=== PATIENT | female | born 1950 | race Caucasian/White ===

== ENCOUNTER 2018-06-08 12:49 | Emergency (ER) | payer MEDICARE ==
--- NOTE | 2018-06-08 13:33 | ERPHSYRPT ---
- History of Present Illness Time Seen by Provider: 06/08/18 13:19 Source: patient Exam Limitations: no limitations Patient Subjective Stated Complaint: Pt states "I tripped over my little dogs blanket yesterday and fell. My right ribs and hip really hurt." Triage Nursing Assessment: Pt alert and oriented X 3, skin pwd. Pt ambulates with a limp, holding onto her right side. able to speak in clear full sentences. Physician History: The patient is a 67-year-old female complaining that she tripped over her dog's blanket yesterday evening, causing her to fall onto the linoleum floor. She now has right sided rib pain and right hip pain. It hurts to take a breath. She called in to her work and told him that she was hurting. She denies losing consciousness. Her past medical history is significant for gout. Occurred: yesterday Reason for Fall: tripped, fell from standing pos Injuries/Pain Location: chest (right ribs), lower extremity (right hip) Loss of Consciousness: no loss of consciousness Quality: aching, sharpness Severity of Pain-Max: moderate Severity of Pain-Current: moderate Modifying Factors: Improves With: movement Associated Symptoms (Fall): extremity injury, trouble walking Allergies/Adverse Reactions: codeine Allergy (Severe, Verified 03/28/16 14:24) Difficulty Breathing Penicillins Allergy (Severe, Verified 03/28/16 14:24) Difficulty Swallowing prednisone Adverse Reaction (Severe, Verified 03/28/16 14:24) Vomiting Hx Tetanus, Diphtheria Vaccination/Date Given: Yes Hx Influenza Vaccination/Date Given: Yes Hx Pneumococcal Vaccination/Date Given: No Immunizations Up to Date: Yes - Review of Systems Constitutional: No Fever, No Chills Eyes: No Symptoms Ears, Nose, & Throat: No Symptoms Respiratory: No Cough, No Dyspnea Cardiac: No Chest Pain, No Edema, No Syncope Abdominal/Gastrointestinal: No Abdominal Pain, No Nausea, No Vomiting, No Diarrhea Genitourinary Symptoms: No Dysuria Musculoskeletal: Fall, Injury Skin: No Rash Neurological: No Dizziness, No Focal Weakness, No Sensory Changes Psychological: No Symptoms Endocrine: No Symptoms Hematologic/Lymphatic: No Symptoms Immunological/Allergic: No Symptoms All Other Systems: Reviewed and Negative - Past Medical History Pertinent Past Medical History: Yes Neurological History: No Pertinent History ENT History: No Pertinent History Cardiac History: No Pertinent History Respiratory History: No Pertinent History Endocrine Medical History: No Pertinent History Musculoskeletal History: Other GI Medical History: No Pertinent History History: No Pertinent History Psycho-Social History: No Pertinent History Female Reproductive Disorders: No Pertinent History Other Medical History: 2nd digit left hand injury,gout - Past Surgical History Past Surgical History: Yes Neuro Surgical History: No Pertinent History Cardiac: No Pertinent History Respiratory: No Pertinent History Gastrointestinal: Appendectomy Genitourinary: No Pertinent History Musculoskeletal: No Pertinent History Female Surgical History: No Pertinent History Other Surgical History: TONSILS - Social History Smoking Status: Current every day smoker How long have you smoked: years Exposure to second hand smoke: Yes Drug Use: none Patient Lives Alone: Yes - Female History Hx Now: No - Nursing Vital Signs Nursing Vital Signs: Initial Vital Signs Temperature 98.6 F 06/08/18 12:58 Pulse Rate 94 H 06/08/18 12:58 Respiratory Rate 16 06/08/18 12:58 Blood Pressure 232/120 06/08/18 12:58 O2 Sat by Pulse Oximetry 97 06/08/18 12:58 Pain Scale Pain Intensity 0 - Chitina Coma Score Best Eye Response (Joann): (4) open spontaneously Best Verbal Response (Joann): (5) oriented Best Motor Response (Chitina): (6) obeys commands Joann Total: 15 - Physical Exam General Appearance: no apparent distress, alert Head Injury: no evidence of injury Eye Exam: PERRL/EOMI ENT Exam: airway nml Neck Exam: normal inspection, No tenderness Respiratory/Chest Exam: chest tenderness, rib tenderness (right lateral rib tenderness) Cardiovascular Exam: normal heart sounds, regular rate/rhythm Gastrointestinal Exam: soft, No tenderness, No distention, No guarding, No ecchymosis Rectal Exam: not done Back Exam: normal inspection, No vertebral tenderness Extremity Exam: weight bearing, tenderness (There is tenderness to palpation of the right hip. There is pain with motion of the right hip.) Neurologic Exam: alert, oriented x 3, cooperative, sensation nml, No motor deficits Skin Exam: normal color, warm, dry SpO2 Interpretation: normal SpO2: 97 Oxygen Delivery: Room Air - Radiology Exams Chest X-ray Interpretation: Reviewed by me, Teleradiologist Report (per Dr Fragoso), Other (old 5, 6 left rib fx) Pelvis X-ray Interpretation: Reviewed by me, Teleradiologist Report (per Dr Fragoso), Negative, No Fracture Right Ribs X-ray Interpretation: Reviewed by me, Teleradiologist Report (per Dr Fragoso), Non- displaced Fracture (8th rib) Right Hip X-ray Interpretation: Reviewed by me, Teleradiologist Report (per Dr Fragoso), Negative, No Fracture Ordered Tests: Active Orders 24 hr Category Date Time Status CHEST 2 VIEWS (PA AND LAT) Stat Exams 06/08/18 13:37 Completed HIP UNI (2V) INCL PEL IF DONE Stat Exams 06/08/18 13:37 Completed RIBS UNILATERAL Stat Exams 06/08/18 13:37 Completed - Progress Progress: unchanged Counseled pt/family regarding: diagnosis, need for follow-up, rad results - Departure Time of Disposition: 14:24 Departure Disposition: Home (fall) Clinical Impression: Fall, Right rib fracture Clinical Impression: (Ruled Out): Left rib fracture Condition: Stable Critical Care Time: No Referrals: SUDHA GOMEZ [Primary Care Provider] - Additional Instructions: You had a fall that ended up fracturing the eighth rib on your right side. You also have some right hip pain. Take [place] one tablet every 4-6 hours as needed. You have the next 3 days off. Follow-up with Dr. Gomez on Monday. Prescriptions: Hydrocodone/APAP 5/325 [[place] 5/325 mg] 1 each PO Q4-6HPRN PRN #12 tablet MDD 6 PRN Reason: Pain
--- NOTE | 2018-06-08 14:10 | XRAY ---
Indication: Right-sided chest pain following fall. Comparison: November 26, 2014. PA/lateral chest remains clear again with COPD and incidental bilateral nipple shadows. Heart and mediastinal structures within normal limits. Bony thorax intact again with old left 5/6 rib fractures. Impression: Stable nonacute chest with chronic features.
--- NOTE | 2018-06-08 14:14 | XRAY ---
Indication: Pain following fall. Comparison: None AP pelvis and 2 views of the right hip obtained. No bony, articular, or soft tissue abnormalities.
--- NOTE | 2018-06-08 14:14 | XRAY ---
Indication: Pain following fall. Comparison: September 07, 2011. 2 views of the right ribs demonstrates nondisplaced anterolateral acute 8 rib fracture. Elsewhere partially visualized old left 5/6 rib fractures and minimal degenerative spurring throughout the spine. No other bony, articular, or soft tissue abnormalities.
[2018-06-08 14:40] VITALS: BP 198/98; PULSE 80; O2SAT 98
== END 2018-06-08 14:59 | disposition home or self-care (01) ==
LOC: ED 12:49
DX: S22.31XA Fracture of one rib, right side, initial encounter for closed fracture (principal); M25.551 Pain in right hip; W18.09XA Striking against other object with subsequent fall, initial encounter; Y93.K9 Activity, other involving animal care; M10.9 Gout, unspecified; Z72.0 Tobacco use
CPT/HCPCS: 71046; 71100; 73502; 99283

== ENCOUNTER 2020-12-22 14:48 | Emergency (ER) | payer MEDICARE ==
[2020-12-22] MEDS ORDERED: BABY ASPIRIN 81 MG CHEW PO ONE (15:06)
--- NOTE | 2020-12-22 15:06 | ERPHSYRPT ---
- History of Present Illness Time Seen by Provider: 12/22/20 15:04 Source: patient Exam Limitations: no limitations Patient Subjective Stated Complaint: PT states "I have been having chest pain and shortness of breath for the past month and my left arm has been hurting." Triage Nursing Assessment: Pt presented alert and oriented X 3, skin pwd. PT ambulates with an upright steady gait, able to speak in clear full setences. pt able to speak in clear full sentences. Physician History: This is a hard of hearing 70-year-old then, female who is not on any medications and is switching her primary care doctor from Dr. Gomez to Dr. Blackmon and presents with at least a 1 month history of intermittent chest pain, shortness of breath and arm pain. Patient has a history of hypertension. Patient was providing some basic information to her new primary care physician on the phone which included her symptoms. They, at the office, told her to come to the emergency room for evaluation. The chest pain is described as intermittent, substernal and centrally located achiness with radiation of the achiness into her arms bilaterally. At times, the radiation of achiness in her arms start distally and then moved proximally. Timing/Duration: week(s) (Over 4 weeks) Activities at Onset: none Severity of Dyspnea-Max: mild Severity of Dyspnea-Current: mild Possible Cause: occasional episodes Associated Symptoms: intermittent, chest pain/discomfort, lightheadedness, No hemoptysis, No calf pain Allergies/Adverse Reactions: codeine Allergy (Severe, Verified 03/28/16 14:24) Difficulty Breathing Penicillins Allergy (Severe, Verified 03/28/16 14:24) Difficulty Swallowing prednisone Adverse Reaction (Severe, Verified 03/28/16 14:24) Vomiting Hx Tetanus, Diphtheria Vaccination/Date Given: Yes Hx Influenza Vaccination/Date Given: Yes Hx Pneumococcal Vaccination/Date Given: No Immunizations Up to Date: Yes Travel Risk - International Travel Have you traveled outside of the country in past 3 weeks: No - Coronavirus Screening Are you exhibiting any of the following symptoms?: No Close contact with a COVID-19 positive Pt in past 14-21 Days: No - Vaccine Status Have you recieved a Covid-19 vaccination: No - Review of Systems Constitutional: No Symptoms Eyes: No Symptoms Ears, Nose, & Throat: No Symptoms Respiratory: Dyspnea Cardiac: Chest Pain Abdominal/Gastrointestinal: No Symptoms Genitourinary Symptoms: No Symptoms Musculoskeletal: No Symptoms Skin: No Symptoms Neurological: No Symptoms Psychological: No Symptoms Endocrine: No Symptoms Hematologic/Lymphatic: No Symptoms Immunological/Allergic: No Symptoms All Other Systems: Reviewed and Negative - Past Medical History Pertinent Past Medical History: Yes Neurological History: No Pertinent History ENT History: No Pertinent History Cardiac History: No Pertinent History Respiratory History: No Pertinent History Endocrine Medical History: No Pertinent History Musculoskeletal History: Other GI Medical History: No Pertinent History History: No Pertinent History Psycho-Social History: No Pertinent History Female Reproductive Disorders: No Pertinent History Other Medical History: 2nd digit left hand injury,gout - Past Surgical History Past Surgical History: Yes Neuro Surgical History: No Pertinent History Cardiac: No Pertinent History Respiratory: No Pertinent History Gastrointestinal: Appendectomy Genitourinary: No Pertinent History Musculoskeletal: No Pertinent History Female Surgical History: No Pertinent History Other Surgical History: TONSILS - Social History Smoking Status: Current every day smoker How long have you smoked: years Exposure to second hand smoke: Yes Drug Use: none Patient Lives Alone: No - Female History Hx Now: No - Nursing Vital Signs Nursing Vital Signs: Initial Vital Signs Temperature 97.3 F 12/22/20 14:51 Pulse Rate 115 H 12/22/20 14:51 Respiratory Rate 22 12/22/20 14:51 Blood Pressure 228/120 12/22/20 14:51 O2 Sat by Pulse Oximetry 96 12/22/20 14:51 Pain Scale Pain Intensity 0 - Physical Exam General Appearance: no apparent distress, alert, anxiety, thin Eye Exam: PERRL/EOMI, eyes nml inspection Ears, Nose, Throat Exam: normal pharynx (Very poor dentition), hearing decreased (Chronic) Neck Exam: normal inspection, non-tender, supple, full range of motion Respiratory Exam: normal breath sounds, chest tenderness, lungs clear, airway intact, No respiratory distress Cardiovascular/Chest Exam: tachycardia Abdominal/Gastrointestinal Exam: soft, normal bowel sounds, No tenderness Rectal Exam: not done Extremity Exam: non-tender, normal range of motion, normal inspection, normal capillary refill, no calf tenderness, no pedal edema, pelvis stable Neurologic Exam: alert, oriented x 3, cooperative, air technician II-XII nml as tested, normal mood/affect, nml cerebellar function, nml station & gait, sensation nml Skin Exam: normal color, warm, dry Lymphatic Exam: No adenopathy SpO2 Interpretation: normal SpO2: 97 O2 Delivery: Room Air - Course Nursing assessment & vital signs reviewed: Yes EKG Interpreted by Me: RATE (100), Sinus Rhythm, NORMAL AXIS, prolonged QT interval, Non-specific ST Changes, Other (No acute ischemic changes. There is no comparison EKG available.) Ordered Tests: Active Orders 24 hr Category Date Time Status Ratings Analyst STAT Care 12/22/20 15:07 Active EKG-ER Only STAT Care 12/22/20 15:06 Active IV Insertion STAT Care 12/22/20 15:06 Active Pulse Oximetry (ED) STAT Care 12/22/20 15:06 Active CHEST 1 VIEW (PORTABLE) Stat Exams 12/22/20 15:07 Completed CBC W DIFF Stat Lab 12/22/20 15:10 Completed CMP Stat Lab 12/22/20 15:10 Completed D-DIMER QUANTITATIVE Stat Lab 12/22/20 15:10 Completed NT PRO BNP Stat Lab 12/22/20 15:10 Completed PROTIME WITH INR Stat Lab 12/22/20 15:10 Completed TROPONIN Q3H Lab 12/22/20 15:10 Completed TROPONIN Q3H Lab 12/22/20 18:15 Ordered TROPONIN Q3H Lab 12/22/20 21:15 Ordered TROPONIN Q3H Lab 12/23/20 00:15 Ordered TROPONIN Q3H Lab 12/23/20 03:15 Ordered Medication Summary Discontinued Medications Generic Name Dose Route Start Last Admin Trade Name Freq PRN Reason Stop Dose Admin Aspirin 324 mg 12/22/20 15:06 12/22/20 15:11 Baby Aspirin 81 Mg Chew PO 12/22/20 15:07 324 mg STAT ONE Administration Aspirin Confirm 12/22/20 15:11 Baby Aspirin 81 Mg Chew Administered 12/22/20 15:12 Dose 324 mg .ROUTE .STK-MED ONE Clonidine 0.1 mg 12/22/20 16:38 Catapres 0.1 Mg PO 12/22/20 16:39 STAT ONE Lab/Rad Data: Laboratory Result Diagrams 12/22/20 15:10 12/22/20 15:10 Laboratory Results 12/22/20 12/22/20 12/22/20 Range/Units 15:10 15:10 15:10 WBC (4.0-10.5) K/mm3 RBC (4.1-5.4) M/mm3 Hgb (12.0-16.0) gm/dl Hct (35-47) % MCV (78-100) fl MCH (26-32) pg MCHC (32-36) g/dl RDW (11.5-14.0) % Plt Count (150-450) K/mm3 MPV (7.5-11.0) fl Gran % (36.0-66.0) % Eos # (Auto) (0-0.5) Absolute Lymphs (auto) (1.0-4.6) Absolute Monos (auto) (0.0-1.3) Lymphocytes % (24.0-44.0) % Monocytes % (0.0-12.0) % Eosinophils % (0.00-5.0) % Basophils % (0.0-0.4) % Absolute Granulocytes (1.4-6.9) Basophils # (0-0.4) PT 10.8 (9.4-12.5) SECONDS INR 0.92 (0.8-3.0) D-Dimer 539 H* (215-500) ng/mL Sodium 139 (137-145) mmol/L Potassium 4.0 (3.5-5.1) mmol/L Chloride 99 (98-107) mmol/L Carbon Dioxide 28 (22-30) mmol/L Anion Gap 16.2 H (5-15) MEQ/L BUN 8 (7-17) mg/dL Creatinine 0.61 (0.52-1.04) mg/dL Estimated GFR > 60.0 ML/MIN Glucose 117 H (74-106) mg/dL Calcium 9.7 (8.4-10.2) mg/dL Total Bilirubin 0.40 (0.2-1.3) mg/dL AST 81 H (14-36) U/L ALT 24 (0-35) U/L Alkaline Phosphatase 95 (38-126) U/L Troponin I < 0.012 (0.000-0.034) ng/mL NT-Pro-B Natriuret Pep 177 (0-900) pg/mL Serum Total Protein 8.0 (6.3-8.2) g/dL Albumin 4.5 (3.5-5.0) g/dL 12/22/ Range/Units 15:10 WBC 9.5 (4.0-10.5) K/mm3 RBC 4.03 L (4.1-5.4) M/mm3 Hgb 14.6 (12.0-16.0) gm/dl Hct 43.1 (35-47) % MCV 106.9 H (78-100) fl MCH 36.2 H (26-32) pg MCHC 33.9 (32-36) g/dl RDW 14.1 H (11.5-14.0) % Plt Count 253 (150-450) K/mm3 MPV 9.6 (7.5-11.0) fl Gran % 64.2 (36.0-66.0) % Eos # (Auto) 0.11 (0-0.5) Absolute Lymphs (auto) 2.39 (1.0-4.6) Absolute Monos (auto) 0.84 (0.0-1.3) Lymphocytes % 25.3 (24.0-44.0) % Monocytes % 8.9 (0.0-12.0) % Eosinophils % 1.2 (0.00-5.0) % Basophils % 0.4 (0.0-0.4) % Absolute Granulocytes 6.07 (1.4-6.9) Basophils # 0.04 (0-0.4) PT (9.4-12.5) SECONDS INR (0.8-3.0) D-Dimer (215-500) ng/mL Sodium (137-145) mmol/L Potassium (3.5-5.1) mmol/L Chloride (98-107) mmol/L Carbon Dioxide (22-30) mmol/L Anion Gap (5-15) MEQ/L BUN (7-17) mg/dL Creatinine (0.52-1.04) mg/dL Estimated GFR ML/MIN Glucose (74-106) mg/dL Calcium (8.4-10.2) mg/dL Total Bilirubin (0.2-1.3) mg/dL AST (14-36) U/L ALT (0-35) U/L Alkaline Phosphatase (38-126) U/L Troponin I (0.000-0.034) ng/mL NT-Pro-B Natriuret Pep (0-900) pg/mL Serum Total Protein (6.3-8.2) g/dL Albumin (3.5-5.0) g/dL - Progress Progress: improved, re-examined Air Movement: good Progress Note: 12/22/20 15:51 Chest x-ray shows no acute cardiopulmonary process Blood Culture(s) Obtained: No Antibiotics given: No Counseled pt/family regarding: lab results, diagnosis, need for follow-up, rad results - Departure Departure Disposition: Home Clinical Impression: Hypertension, Chest pain Condition: Stable Critical Care Time: No Referrals: SUDHA GOMEZ [ACTIVE STAFF] - Additional Instructions: Stop smoking. Take your medication as prescribed. Follow-up with your primary care physician for further management of your high blood pressure issues. Prescriptions: Hydrochlorothiazide 25 mg [hydroDIURIL 25 MG] 25 mg PO DAILY #10 tablet
[2020-12-22] MEDS ORDERED: BABY ASPIRIN 81 MG CHEW ONE (15:11)
[2020-12-22 15:21] LABS: Absolute Neutrophil Ct (ANC) 6.07 (1.4-6.9); BASOPHIL % 0.4 % (0.0-0.4); Basophil (Absolute #) 0.04 (0-0.4); Eosinophil % 1.2 % (0.00-5.0); Eosinophil (Absolute #) 0.11 (0-0.5); Hematocrit 43.1 % (35-47); Hemoglobin 14.6 gm/dl (12.0-16.0); Lymphocyte (Absolute #) 2.39 (1.0-4.6); Lymphocytes % 25.3 % (24.0-44.0); Mean Cell Volume 106.9 fl (78-100); Mean Corpuscular Hemoglobin 36.2 pg (26-32); Mean Corpuscular Hgb Concent. 33.9 g/dl (32-36); Mean Platelet Volume 9.6 fl (7.5-11.0); Monocyte (Absolute #) 0.84 (0.0-1.3); Monocytes % 8.9 % (0.0-12.0); Neutrophil % 64.2 % (36.0-66.0); Platelet Count 253 K/mm3 (150-450); Red Blood Count 4.03 M/mm3 (4.1-5.4); Red Cell Distribution Width 14.1 % (11.5-14.0); White Blood Count 9.5 K/mm3 (4.0-10.5)
--- NOTE | 2020-12-22 15:30 | XRAY ---
Indication: Chest pain and short of breath. Comparison: June 08, 2018. Portable chest remains clear again with COPD, bilateral nipple shadows, and left midlung fibrosis/scarring. Heart not enlarged. Bony thorax intact again with mild osteopenia, minimal scoliosis, old left 5/6 rib fractures, and old right 10 rib fracture. Impression: Continued nonacute chest with chronic features.
[2020-12-22 15:49] LABS: ALBUMIN 4.5 g/dL (3.5-5.0); ALKALINE PHOSPHATASE 95 U/L (38-126); ANION GAP 16.2 MEQ/L (5-15); BLOOD UREA NITROGEN 8 mg/dL (7-17); CHLORIDE 99 mmol/L (98-107); Calcium 9.7 mg/dL (8.4-10.2); Carbon Dioxide 28 mmol/L (22-30); Creatinine 1 0.61 mg/dL (0.52-1.04); EST GLOMERULAR FILTRATION RATE > 60.0 ML/MIN; Glucose 117 mg/dL (74-106); NT PRO BNP 177 pg/mL (0-900); SGOT/AST 81 U/L (14-36); SGPT/ALT 24 U/L (0-35); SODIUM 139 mmol/L (137-145)
[2020-12-22 16:17] LABS: INR 0.92 (0.8-3.0); PROTIME 10.8 SECONDS (9.4-12.5)
[2020-12-22] MEDS ORDERED: Catapres 0.1 MG PO ONE (16:38)
[2020-12-22] MEDS ORDERED: Catapres 0.1 MG ONE (16:42)
[2020-12-22 17:25] VITALS: BP 150/76; PULSE 65; O2SAT 98
== END 2020-12-22 17:25 | disposition home or self-care (01) ==
LOC: ED 14:48
DX: I10 Essential (primary) hypertension (principal); R07.9 Chest pain, unspecified; R06.02 Shortness of breath; Z72.0 Tobacco use
CPT/HCPCS: 36000; 36415; 71045; 80053; 83880; 84484; 85025; 85379; 85610; 93005; 93041; 94760; 99284; A9270-GY

== ENCOUNTER 2021-06-26 17:34 | Inpatient (IN) | payer MEDICARE ==
[2021-06-26] MEDS ORDERED: Sodium Chloride 0.9% 1000 ML 1,000 ML IV STA (17:45)
--- NOTE | 2021-06-26 18:21 | ERPHSYRPT ---
- History of Present Illness Time Seen by Provider: 06/26/21 18:18 Source: patient, EMS Exam Limitations: no limitations Patient Subjective Stated Complaint: Pt states "I have a horrible cough and it will not go away." Triage Nursing Assessment: Pt presented alert and oriented X 3, skin wpd Pt ambulates with an upright steady gait, able to speak in clear full sentences pt slightly tachypneic, extremely hard of hearing, pt Spo2 in the upper 80s on room air and improves with 2 lpm o2, intermittant productive cough-yellow green sputum Physician History: Patient is 70-year-old female with significant past medical history of COPD started having cough approximately 2 weeks ago which will not go away. Patient is complaining of shortness of breath cough generalized body ache. Patient has no exposure to COVID recently but has not been vaccinated. Timing/Duration: day(s) (7-10 days) Severity of Dyspnea-Max: moderate Severity of Dyspnea-Current: moderate Possible Cause: frequent episodes Associated Symptoms: cough, wheezing Allergies/Adverse Reactions: codeine Allergy (Severe, Verified 03/28/16 14:24) Difficulty Breathing Penicillins Allergy (Severe, Verified 03/28/16 14:24) Difficulty Swallowing prednisone Adverse Reaction (Severe, Verified 03/28/16 14:24) Vomiting Hx Tetanus, Diphtheria Vaccination/Date Given: Yes Hx Influenza Vaccination/Date Given: Yes Hx Pneumococcal Vaccination/Date Given: No Immunizations Up to Date: Yes Travel Risk - International Travel Have you traveled outside of the country in past 3 weeks: No - Coronavirus Screening Are you exhibiting any of the following symptoms?: Yes Symptoms: Cough: New Onset, Shortness of Breath Close contact with a COVID-19 positive Pt in past 14-21 Days: No - Vaccine Status Have you recieved a Covid-19 vaccination: No - Review of Systems Constitutional: No Fever, No Chills Eyes: No Symptoms Ears, Nose, & Throat: No Symptoms Respiratory: Cough, Dyspnea, Dyspnea on Exertion (VEGAS), Wheezing Cardiac: No Chest Pain, No Edema, No Syncope Abdominal/Gastrointestinal: No Abdominal Pain, No Nausea, No Vomiting, No Diarrhea Genitourinary Symptoms: No Dysuria Musculoskeletal: No Back Pain, No Neck Pain Skin: No Rash Neurological: No Dizziness, No Focal Weakness, No Sensory Changes Psychological: No Symptoms Endocrine: No Symptoms All Other Systems: Reviewed and Negative - Past Medical History Pertinent Past Medical History: Yes Neurological History: No Pertinent History ENT History: No Pertinent History Cardiac History: No Pertinent History Respiratory History: COPD, Emphysema Endocrine Medical History: No Pertinent History Musculoskeletal History: Other GI Medical History: No Pertinent History History: No Pertinent History Psycho-Social History: No Pertinent History Female Reproductive Disorders: No Pertinent History Other Medical History: 2nd digit left hand injury,gout - Past Surgical History Past Surgical History: Yes Neuro Surgical History: No Pertinent History Cardiac: No Pertinent History Respiratory: No Pertinent History Gastrointestinal: Appendectomy Genitourinary: No Pertinent History Musculoskeletal: No Pertinent History Female Surgical History: No Pertinent History Other Surgical History: TONSILS - Social History Smoking Status: Current every day smoker How long have you smoked: years Exposure to second hand smoke: Yes Drug Use: none Patient Lives Alone: No - Female History Hx Now: No - Nursing Vital Signs Nursing Vital Signs: Initial Vital Signs Temperature 99.8 F 06/26/21 17:35 Pulse Rate 90 06/26/21 17:35 Respiratory Rate 24 06/26/21 17:35 Blood Pressure 122/91 06/26/21 17:35 O2 Sat by Pulse Oximetry 86 L 06/26/21 17:35 Pain Scale Pain Intensity 0 - Physical Exam General Appearance: no apparent distress, alert Eye Exam: PERRL/EOMI Neck Exam: normal inspection, supple Respiratory Exam: diminished breath sounds, crackles/rales, rhonchi, wheezing Cardiovascular/Chest Exam: normal heart sounds, regular rate/rhythm Abdominal/Gastrointestinal Exam: soft, No tenderness, No distention, No mass Extremity Exam: non-tender, normal range of motion, normal inspection, no calf tenderness, no pedal edema Neurologic Exam: alert, oriented x 3, cooperative, 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 tested, sensation nml, No motor deficits Skin Exam: normal color, warm, No dry SpO2 Interpretation: borderline oxygenation SpO2: 86 O2 Delivery: Room Air - Course Nursing assessment & vital signs reviewed: Yes EKG Interpreted by Me: Sinus Rhythm - Radiology Exams Chest X-ray Interpretation: Reviewed by me (intertitial infiltarte consistanrt with COVID pneumoniaCOPD changes) Ordered Tests: Active Orders 24 hr Category Date Time Status On Car Supervisor STAT Care 06/26/21 17:47 Active Oxygen-ED Only Nasal Cannula 3 lpm Care 06/26/21 17:45 Active CHEST 2 VIEWS (PA AND LAT) Stat Exams 06/26/21 17:47 Completed BLOOD CULTURE Stat Lab 06/26/21 18:27 Ordered CBC W DIFF Stat Lab 06/26/21 17:45 Completed CMP Stat Lab 06/26/21 18:27 Completed COVID AG-BINAX NOW RAPID TEST Stat Lab 06/26/21 18:29 Completed D-DIMER QUANTITATIVE Stat Lab 06/26/21 18:27 Completed NT PRO BNP Stat Lab 06/26/21 18:27 Completed TROPONIN Q3H Lab 06/26/21 18:27 Received TROPONIN Q3H Lab 06/26/21 21:00 Ordered TROPONIN Q3H Lab 06/27/21 00:00 Ordered TROPONIN Q3H Lab 06/27/21 03:00 Ordered TROPONIN Q3H Lab 06/27/21 06:00 Ordered UA W/RFX UR CULTURE Stat Lab 06/26/21 17:46 Ordered Medication Summary Discontinued Medications Generic Name Dose Route Start Last Admin Trade Name Freq PRN Reason Stop Dose Admin Sodium Chloride 1,000 mls @ 999 mls/hr 06/26/21 17:45 06/26/21 18:30 Sodium Chloride 0.9% 1000 Ml IV 06/26/21 18:45 999 mls/hr .Q1H1M STA Administration Sodium Chloride Confirm 06/26/21 18:26 Sodium Chloride 0.9% 1000 Ml Administered 06/26/21 18:27 Dose 1,000 mls @ ud .ROUTE .STK-MED ONE Lab/Rad Data: Laboratory Result Diagrams 06/26/21 17:45 06/26/21 18:27 Laboratory Results 06/26/21 06/26/21 06/26/21 Range/Units 18:29 18:27 18:27 WBC (4.0-10.5) K/mm3 RBC (4.1-5.4) M/mm3 Hgb (12.0-16.0) gm/dl Hct (35-47) % MCV (78-100) fl MCH (26-32) pg MCHC (32-36) g/dl RDW (11.5-14.0) % Plt Count (150-450) K/mm3 MPV (7.5-11.0) fl Gran % (36.0-66.0) % Eos # (Auto) (0-0.5) Absolute Lymphs (auto) (1.0-4.6) Absolute Monos (auto) (0.0-1.3) Lymphocytes % (24.0-44.0) % Monocytes % (0.0-12.0) % Eosinophils % (0.00-5.0) % Basophils % (0.0-0.4) % Absolute Granulocytes (1.4-6.9) Basophils # (0-0.4) D-Dimer 559 H* (215-500) ng/mL Sodium 136 L (137-145) mmol/L Potassium 3.6 (3.5-5.1) mmol/L Chloride 102 (98-107) mmol/L Carbon Dioxide 25 (22-30) mmol/L Anion Gap 12.0 (5-15) MEQ/L BUN 9 (7-17) mg/dL Creatinine 0.52 (0.52-1.04) mg/dL Estimated GFR > 60.0 ML/MIN Glucose 162 H (74-106) mg/dL Calcium 8.5 (8.4-10.2) mg/dL Total Bilirubin 0.60 (0.2-1.3) mg/dL AST 45 H (14-36) U/L ALT 24 (0-35) U/L Alkaline Phosphatase 103 (38-126) U/L NT-Pro-B Natriuret Pep 701 (0-900) pg/mL Serum Total Protein 6.8 (6.3-8.2) g/dL Albumin 3.4 L (3.5-5.0) g/dL SARS-CoV-2 Ag (Rapid) POSITIVE A* (NEGATIVE) 06/26/21 Range/Units 17:45 WBC 8.1 (4.0-10.5) K/mm3 RBC 4.05 L (4.1-5.4) M/mm3 Hgb 14.4 (12.0-16.0) gm/dl Hct 42.1 (35-47) % MCV 104.0 H (78-100) fl MCH 35.6 H (26-32) pg MCHC 34.2 (32-36) g/dl RDW 15.2 H (11.5-14.0) % Plt Count 235 (150-450) K/mm3 MPV 9.8 (7.5-11.0) fl Gran % 82.8 H (36.0-66.0) % Eos # (Auto) 0 (0-0.5) Absolute Lymphs (auto) 0.43 L (1.0-4.6) Absolute Monos (auto) 0.96 (0.0-1.3) Lymphocytes % 5.3 L (24.0-44.0) % Monocytes % 11.9 (0.0-12.0) % Eosinophils % 0.0 (0.00-5.0) % Basophils % 0.0 (0.0-0.4) % Absolute Granulocytes 6.70 (1.4-6.9) Basophils # 0 (0-0.4) D-Dimer (215-500) ng/mL Sodium (137-145) mmol/L Potassium (3.5-5.1) mmol/L Chloride (98-107) mmol/L Carbon Dioxide (22-30) mmol/L Anion Gap (5-15) MEQ/L BUN (7-17) mg/dL Creatinine (0.52-1.04) mg/dL Estimated GFR ML/MIN Glucose (74-106) mg/dL Calcium (8.4-10.2) mg/dL Total Bilirubin (0.2-1.3) mg/dL AST (14-36) U/L ALT (0-35) U/L Alkaline Phosphatase (38-126) U/L NT-Pro-B Natriuret Pep (0-900) pg/mL Serum Total Protein (6.3-8.2) g/dL Albumin (3.5-5.0) g/dL SARS-CoV-2 Ag (Rapid) (NEGATIVE) - Progress Progress: improved Air Movement: fair Blood Culture(s) Obtained: No Antibiotics given: No Discussed with : Other (Dr Renaldo Garnica) Will see patient in: hospital (full admit) Counseled pt/family regarding: lab results, diagnosis, need for follow-up, rad results, smoking cessation - Departure Departure Disposition: In-patient Admission Clinical Impression: Pneumonia due to COVID-19 virus Condition: Stable Critical Care Time: Yes Critical Care Time(excluding separately billable procedures): Critical 30-74 mins Referrals: BELLE ELENA DO [Primary Care Provider] - Follow up/PCP as directed
[2021-06-26] MEDS ORDERED: Sodium Chloride 0.9% 1000 ML 1,000 ML ONE (18:26)
[2021-06-26 18:36] LABS: Basophil (Absolute #) 0 (0-0.4); Eosinophil (Absolute #) 0 (0-0.5); Hematocrit 42.1 % (35-47); Hemoglobin 14.4 gm/dl (12.0-16.0); Lymphocyte (Absolute #) 0.43 (1.0-4.6); Lymphocytes % 5.3 % (24.0-44.0); Mean Corpuscular Hemoglobin 35.6 pg (26-32); Mean Corpuscular Hgb Concent. 34.2 g/dl (32-36); Mean Platelet Volume 9.8 fl (7.5-11.0); Monocyte (Absolute #) 0.96 (0.0-1.3); Monocytes % 11.9 % (0.0-12.0); Neutrophil % 82.8 % (36.0-66.0); Platelet Count 235 K/mm3 (150-450); Red Blood Count 4.05 M/mm3 (4.1-5.4); Red Cell Distribution Width 15.2 % (11.5-14.0); White Blood Count 8.1 K/mm3 (4.0-10.5)
--- NOTE | 2021-06-26 18:45 | XRAY ---
Indication: Fever, cough, short of breath, and weakness. Comparison: December 22, 2020. PA/lateral chest again demonstrates COPD, tiny left midlung calcified granuloma, and incidental bilateral nipple shadows. No focal infiltrate, consolidation, or large effusion. Heart and mediastinal structures within normal limits. Bony thorax intact again with osteopenia, minimal dextroscoliosis, old left 5/6 rib fractures, and old right 10 rib fracture. Impression: Continued nonacute chest with chronic features.
[2021-06-26 18:49] LABS: ALBUMIN 3.4 g/dL (3.5-5.0); ALKALINE PHOSPHATASE 103 U/L (38-126); BLOOD UREA NITROGEN 9 mg/dL (7-17); CHLORIDE 102 mmol/L (98-107); Calcium 8.5 mg/dL (8.4-10.2); Carbon Dioxide 25 mmol/L (22-30); Creatinine 1 0.52 mg/dL (0.52-1.04); EST GLOMERULAR FILTRATION RATE > 60.0 ML/MIN; Glucose 162 mg/dL (74-106); NT PRO BNP 701 pg/mL (0-900); Potassium 3.6 mmol/L (3.5-5.1); SGOT/AST 45 U/L (14-36); SGPT/ALT 24 U/L (0-35); SODIUM 136 mmol/L (137-145); Total Protein 6.8 g/dL (6.3-8.2)
[2021-06-26 18:53] LABS: COVID AG -BINAX NOW RAPID TEST POSITIVE (NEGATIVE)
[2021-06-26] MEDS ORDERED: VENTOLIN COMMON CANISTER IH PRN (19:04)
[2021-06-26] MEDS ORDERED: Lactated Ringers 1,000 ML IV SCH (19:30)
[2021-06-26] MEDS: Tessalon Perles 100 MG PO PRN (19:52)
[2021-06-26] MEDS ORDERED: REMDESIVIR 200 MG in Sodium Chloride 0.9% 250 ML 250 ML IV ONE (20:16)
[2021-06-26] MEDS ORDERED: REMDESIVIR IV ONE (20:17)
[2021-06-26] MEDS ORDERED: Sodium Chloride 0.9% 250 ML 250 ML IV ONE (20:17)
[2021-06-26] MEDS ORDERED: TYLENOL EXTRA STRENGTH 500 MG PO PRN (21:13)
[2021-06-26] MEDS ORDERED: Sodium Chloride 0.9% 1000 ML 1,000 ML IV SCH (21:15)
[2021-06-26] MEDS: NORCO 5/325 MG PO PRN (21:25)
[2021-06-27] MEDS: HYDROCODONE-CHLORPHEN ER SUSP PO PRN ×2 (00:45→19:16)
[2021-06-27] MEDS: NORCO 5/325 MG PO PRN ×5 (04:10→21:33)
[2021-06-27 06:31] LABS: Hematocrit 37.6 % (35-47); Hemoglobin 12.8 gm/dl (12.0-16.0); Mean Cell Volume 104.4 fl (78-100); Mean Corpuscular Hemoglobin 35.6 pg (26-32); Mean Platelet Volume 9.9 fl (7.5-11.0); Platelet Count 215 K/mm3 (150-450); Red Cell Distribution Width 15.4 % (11.5-14.0); White Blood Count 7.9 K/mm3 (4.0-10.5)
[2021-06-27 06:57] LABS: ALBUMIN 2.4 g/dL (3.5-5.0); ALKALINE PHOSPHATASE 73 U/L (38-126); ANION GAP 9.7 MEQ/L (5-15); BLOOD UREA NITROGEN 7 mg/dL (7-17); CHLORIDE 107 mmol/L (98-107); Calcium 7.4 mg/dL (8.4-10.2); Carbon Dioxide 23 mmol/L (22-30); Creatinine 1 0.49 mg/dL (0.52-1.04); EST GLOMERULAR FILTRATION RATE > 60.0 ML/MIN; Glucose 91 mg/dL (74-106); Potassium 3.5 mmol/L (3.5-5.1); SGOT/AST 30 U/L (14-36); SGPT/ALT 16 U/L (0-35); SODIUM 135 mmol/L (137-145); Total Protein 5.1 g/dL (6.3-8.2)
[2021-06-27] MEDS: VENTOLIN COMMON CANISTER IH SCH ×4 (08:05→20:00)
[2021-06-27] MEDS: Tessalon Perles 100 MG PO PRN ×2 (08:27→23:49)
[2021-06-27] MEDS: ENOXAPARIN SODIUM SQ SCH (10:02)
[2021-06-27] MEDS: OLUMIANT PO SCH (10:02)
[2021-06-27] MEDS: DECADRON 10MG INJ. IV SCH (10:02)
[2021-06-27] MEDS: ZYLOPRIM 100 MG PO SCH (10:03)
[2021-06-27] MEDS: hydroDIURIL 25 MG PO SCH (12:04)
[2021-06-27] MEDS: NORVASC 5 MG PO SCH (12:04)
[2021-06-27] MEDS: REMDESIVIR 100 MG in Sodium Chloride 0.9% 100 ML BAG 100 ML IV SCH (18:10)
[2021-06-28] MEDS: NORCO 5/325 MG PO PRN ×5 (01:35→22:09)
[2021-06-28] MEDS: Tessalon Perles 100 MG PO PRN (05:37)
[2021-06-28 06:01] LABS: Hematocrit 37.8 % (35-47); Mean Corpuscular Hemoglobin 35.4 pg (26-32); Mean Corpuscular Hgb Concent. 34.4 g/dl (32-36); Platelet Count 251 K/mm3 (150-450); Red Blood Count 3.67 M/mm3 (4.1-5.4); White Blood Count 7.4 K/mm3 (4.0-10.5)
[2021-06-28 06:10] LABS: ALBUMIN 2.6 g/dL (3.5-5.0); ALKALINE PHOSPHATASE 93 U/L (38-126); ANION GAP 11.1 MEQ/L (5-15); BLOOD UREA NITROGEN 14 mg/dL (7-17); CHLORIDE 104 mmol/L (98-107); Calcium 7.9 mg/dL (8.4-10.2); Carbon Dioxide 24 mmol/L (22-30); Creatinine 1 0.41 mg/dL (0.52-1.04); EST GLOMERULAR FILTRATION RATE > 60.0 ML/MIN; Glucose 179 mg/dL (74-106); Potassium 3.6 mmol/L (3.5-5.1); SGOT/AST 30 U/L (14-36); SGPT/ALT 19 U/L (0-35); SODIUM 135 mmol/L (137-145); Total Protein 5.5 g/dL (6.3-8.2)
[2021-06-28] MEDS: VENTOLIN COMMON CANISTER IH SCH ×4 (07:41→19:15)
[2021-06-28] MEDS: DECADRON 10MG INJ. IV SCH (08:51)
[2021-06-28] MEDS: OLUMIANT PO SCH (08:53)
[2021-06-28] MEDS: NORVASC 5 MG PO SCH (08:54)
[2021-06-28] MEDS: hydroDIURIL 25 MG PO SCH (08:54)
[2021-06-28] MEDS: ZYLOPRIM 100 MG PO SCH (08:55)
[2021-06-28] MEDS: ENOXAPARIN SODIUM SQ SCH (08:56)
[2021-06-28] MEDS: REMDESIVIR 100 MG in Sodium Chloride 0.9% 100 ML BAG 100 ML IV SCH (20:04)
[2021-06-29 05:31] LABS: Hematocrit 39.4 % (35-47); Hemoglobin 13.2 gm/dl (12.0-16.0); Mean Cell Volume 103.1 fl (78-100); Mean Corpuscular Hemoglobin 34.6 pg (26-32); Mean Corpuscular Hgb Concent. 33.5 g/dl (32-36); Mean Platelet Volume 10.3 fl (7.5-11.0); Platelet Count 304 K/mm3 (150-450); Red Blood Count 3.82 M/mm3 (4.1-5.4); White Blood Count 8.6 K/mm3 (4.0-10.5)
[2021-06-29 06:00] LABS: ALKALINE PHOSPHATASE 84 U/L (38-126); BLOOD UREA NITROGEN 12 mg/dL (7-17); CHLORIDE 98 mmol/L (98-107); Calcium 8.2 mg/dL (8.4-10.2); Carbon Dioxide 26 mmol/L (22-30); Creatinine 1 0.42 mg/dL (0.52-1.04); EST GLOMERULAR FILTRATION RATE > 60.0 ML/MIN; Glucose 165 mg/dL (74-106); Potassium 3.3 mmol/L (3.5-5.1); SGOT/AST 31 U/L (14-36); SGPT/ALT 19 U/L (0-35); SODIUM 132 mmol/L (137-145); Total Protein 6.2 g/dL (6.3-8.2)
[2021-06-29] MEDS: VENTOLIN COMMON CANISTER IH SCH ×4 (07:15→19:10)
[2021-06-29] MEDS: DECADRON 10MG INJ. IV SCH (07:42)
[2021-06-29] MEDS: OLUMIANT PO SCH (07:43)
[2021-06-29] MEDS: hydroDIURIL 25 MG PO SCH (07:43)
[2021-06-29] MEDS: NORVASC 5 MG PO SCH (07:44)
[2021-06-29] MEDS: ZYLOPRIM 100 MG PO SCH (07:44)
[2021-06-29] MEDS: HYDROCODONE-CHLORPHEN ER SUSP PO PRN ×2 (07:45→21:52)
[2021-06-29] MEDS: ENOXAPARIN SODIUM SQ SCH (07:45)
[2021-06-29] MEDS: NORCO 5/325 MG PO PRN ×4 (08:54→21:52)
[2021-06-29] MEDS: Klor Con 10 MEQ PO SCH ×2 (12:35→21:52)
[2021-06-29] MEDS: REMDESIVIR 100 MG in Sodium Chloride 0.9% 100 ML BAG 100 ML IV SCH (19:21)
[2021-06-30] MEDS: Tessalon Perles 100 MG PO PRN ×2 (00:34→09:18)
[2021-06-30] MEDS: NORCO 5/325 MG PO PRN ×2 (02:21→07:42)
[2021-06-30 05:47] LABS: Hematocrit 38.7 % (35-47); Hemoglobin 12.9 gm/dl (12.0-16.0); Mean Cell Volume 102.4 fl (78-100); Mean Corpuscular Hemoglobin 34.1 pg (26-32); Mean Corpuscular Hgb Concent. 33.3 g/dl (32-36); Platelet Count 347 K/mm3 (150-450); Red Blood Count 3.78 M/mm3 (4.1-5.4); Red Cell Distribution Width 15.3 % (11.5-14.0); White Blood Count 7.5 K/mm3 (4.0-10.5)
[2021-06-30 06:17] LABS: ALBUMIN 2.9 g/dL (3.5-5.0); ALKALINE PHOSPHATASE 93 U/L (38-126); ANION GAP 9.8 MEQ/L (5-15); BLOOD UREA NITROGEN 13 mg/dL (7-17); CHLORIDE 97 mmol/L (98-107); Calcium 8.4 mg/dL (8.4-10.2); Carbon Dioxide 28 mmol/L (22-30); Creatinine 1 0.43 mg/dL (0.52-1.04); EST GLOMERULAR FILTRATION RATE > 60.0 ML/MIN; Glucose 159 mg/dL (74-106); Potassium 3.5 mmol/L (3.5-5.1); SGOT/AST 54 U/L (14-36); SGPT/ALT 28 U/L (0-35); SODIUM 131 mmol/L (137-145); Total Protein 6.1 g/dL (6.3-8.2)
[2021-06-30 07:26] VITALS: BP 128/64
[2021-06-30] MEDS: VENTOLIN COMMON CANISTER IH SCH (07:44)
[2021-06-30 07:48] VITALS: PULSE 72; O2SAT 91
[2021-06-30] MEDS: OLUMIANT PO SCH (09:17)
[2021-06-30] MEDS: NORVASC 5 MG PO SCH (09:17)
[2021-06-30] MEDS: Klor Con 10 MEQ PO SCH (09:17)
[2021-06-30] MEDS: hydroDIURIL 25 MG PO SCH (09:18)
[2021-06-30] MEDS: ZYLOPRIM 100 MG PO SCH (09:19)
[2021-06-30] MEDS: ENOXAPARIN SODIUM SQ SCH (09:22)
[2021-06-30] MEDS: DECADRON 10MG INJ. IV SCH (09:22)
--- NOTE | 2021-06-30 11:26 | DS ---
ADMISSION DIAGNOSIS: COVID pneumonia. DISCHARGE DIAGNOSES: 1) COVID PNEUMONIA. 2) CHRONIC OBSTRUCTIVE PULMONARY DISEASE. 3) MACROCYTIC ANEMIA. 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 She is a heavy smoker. She is very frail looking. She started coughing and became very weak. She came into the emergency room and was admitted after she was found to be slightly hypoxic. Chest x-ray showed lots of emphysema. Her D-dimer was only 559. Her white count was 8.1. Her MCV was 104. B12 and folate levels were normal. I wonder if this might be due to alcohol as I know some of her friends who drank a fair amount in the past. She said it was not. She is very hard of hearing but she continued to improve on a daily basis. On the day of discharge, she was eating well. She had required no oxygen for 48 hours. She was able to walk to and from the bathroom without help. She did not leave. However, she does not meet criteria. I think she will do just fine. She had received the usual COVID medications and also required some potassium due to probably being on hydrochlorothiazide and she was discharged with some potassium 10 mEq q.d. Follow up with her physician. PROGNOSIS: Good.
== END 2021-06-30 12:30 | disposition home health service (06) | DRG 177 ==
LOC: ED 17:34 → MED SURG 19:56
PROVIDERS: ADMIT Family Medicine; ATTEND Family Medicine
DX: U07.1 COVID-19 (principal); J12.82 Pneumonia due to coronavirus disease 2019; J44.9 Chronic obstructive pulmonary disease, unspecified; D53.9 Nutritional anemia, unspecified; R09.02 Hypoxemia; Z72.0 Tobacco use; Z79.899 Other long term (current) drug therapy
CPT/HCPCS: 36000; 36415; 71046; 80053; 82746; 83880; 84484; 85025; 85027; 85379; 87040; 93041; 94640; 94762; 96374; 99000; 99284; 99291; U0003; J0248; J1100; J1650; A9270-GY

== ENCOUNTER 2021-07-01 14:55 | Emergency (ER) | payer MEDICARE ==
[2021-07-01] MEDS ORDERED: DUONEB 0.5-3 MG/3 ml Neb IH ONE (15:40)
--- NOTE | 2021-07-01 16:15 | XRAY ---
Indication: Cough. Short of breath. Comparison: June 26, 2021. Portable chest remains clear again demonstrating COPD and incidental left midlung calcified granuloma. Heart not enlarged. No new/acute cardiopulmonary abnormalities.
[2021-07-01] MEDS ORDERED: VENTOLIN COMMON CANISTER IH ONE (16:36)
[2021-07-01 16:38] LABS: Hemoglobin 15.3 gm/dl (12.0-16.0); Mean Cell Volume 103.4 fl (78-100); Mean Corpuscular Hemoglobin 34.4 pg (26-32); Mean Corpuscular Hgb Concent. 33.3 g/dl (32-36); Mean Platelet Volume 9.6 fl (7.5-11.0); Platelet Count 414 K/mm3 (150-450); Red Blood Count 4.45 M/mm3 (4.1-5.4); Red Cell Distribution Width 15.8 % (11.5-14.0); White Blood Count 14.2 K/mm3 (4.0-10.5)
[2021-07-01 16:39] VITALS: PULSE 86
[2021-07-01 16:44] VITALS: BP 90/57; O2SAT 93
[2021-07-01 17:05] LABS: ALBUMIN 3.2 g/dL (3.5-5.0); ALKALINE PHOSPHATASE 99 U/L (38-126); ANION GAP 12.2 MEQ/L (5-15); BLOOD UREA NITROGEN 17 mg/dL (7-17); CHLORIDE 98 mmol/L (98-107); Calcium 8.4 mg/dL (8.4-10.2); Carbon Dioxide 28 mmol/L (22-30); Creatinine 1 0.66 mg/dL (0.52-1.04); EST GLOMERULAR FILTRATION RATE > 60.0 ML/MIN; Glucose 88 mg/dL (74-106); MAGNESIUM 2.2 mg/dL (1.6-2.3); NT PRO BNP 428 pg/mL (0-900); Potassium 3.6 mmol/L (3.5-5.1); SGOT/AST 49 U/L (14-36); SGPT/ALT 38 U/L (0-35); SODIUM 135 mmol/L (137-145); Total Protein 6.5 g/dL (6.3-8.2)
[2021-07-01 17:49] LABS: ATYPICAL LYMPHS 1 %; Lymphocytes 13 % (24-44); Monocyte 4 % (0.0-12.0); Neutrophils 82 % (36.0-66.0); Platelet Estimate NORMAL (NORMAL); Total Cells Counted 100
--- NOTE | 2021-07-01 17:55 | ERPHSYRPT ---
- History of Present Illness Time Seen by Provider: 07/01/21 15:00 Source: patient, EMS Exam Limitations: no limitations Patient Subjective Stated Complaint: Pt had been hospitilized for the past 5-6 days at [facility] and was discharged yesterday with COVID and returned today due to SOB, when medics arrived she was at 85% and they gave her a couple of treatments and she is now at 92% Triage Nursing Assessment: Pt brought by EMS to the ER, tachypnic, rates overall pain as 9/10, productive cough, was not sent home on oxygen due to not being on oxygen while at the hospital, pulses normal, weak, reports broken ribs on the left from coughing, heart rate irregular Physician History: 70 years old female who was recently admitted for COVID-19 at [facility], was discharged yesterday presented back in the ER with increasing shortness of breath. Patient reports she is using inhaler and it does not seem helping. On EMS arrival her oxygen saturation was 85% on room air, was given breathing treatment and saturation improved in low 90s. Does have chest tightness, wheezing and pressure which has been there for almost a week. Does have minimal productive cough. Patient did not qualify for oxygen on upon discharge. Denies fever or chills but has generalized weakness fatigue and tiredness. Patient is currently around 93% on room air without any distress. Allergies/Adverse Reactions: codeine Allergy (Severe, Verified 07/01/21 15:12) Difficulty Breathing Penicillins Allergy (Severe, Verified 07/01/21 15:12) Difficulty Swallowing prednisone Adverse Reaction (Severe, Verified 07/01/21 15:12) Vomiting Home Medications: Allopurinol 100 mg [Zyloprim 100 mg] 100 mg PO DAILY 06/26/21 [History] Amlodipine Besylate 5 mg [Norvasc 5 mg] 2.5 mg PO DAILY 06/26/21 [History] Hx Tetanus, Diphtheria Vaccination/Date Given: Yes Hx Influenza Vaccination/Date Given: Yes Hx Pneumococcal Vaccination/Date Given: No Travel Risk - International Travel Have you traveled outside of the country in past 3 weeks: No - Coronavirus Screening Are you exhibiting any of the following symptoms?: Yes Symptoms: Cough: New Onset, Shortness of Breath - Vaccine Status Have you recieved a Covid-19 vaccination: No - Review of Systems Constitutional: Fatigue, Weakness Eyes: No Symptoms Ears, Nose, & Throat: No Symptoms Respiratory: Cough, Dyspnea, Dyspnea on Exertion (VEGAS), Wheezing Cardiac: No Symptoms Abdominal/Gastrointestinal: No Symptoms Genitourinary Symptoms: No Symptoms Musculoskeletal: Myalgias Neurological: No Symptoms Psychological: No Symptoms Endocrine: No Symptoms Hematologic/Lymphatic: No Symptoms Immunological/Allergic: No Symptoms - Past Medical History Pertinent Past Medical History: Yes Neurological History: No Pertinent History ENT History: No Pertinent History Cardiac History: No Pertinent History Respiratory History: COPD, Emphysema Endocrine Medical History: No Pertinent History Musculoskeletal History: Other GI Medical History: No Pertinent History History: No Pertinent History Psycho-Social History: No Pertinent History Female Reproductive Disorders: No Pertinent History Other Medical History: 2nd digit left hand injury,gout - Past Surgical History Past Surgical History: Yes Neuro Surgical History: No Pertinent History Cardiac: No Pertinent History Respiratory: No Pertinent History Gastrointestinal: Appendectomy Genitourinary: No Pertinent History Musculoskeletal: No Pertinent History Female Surgical History: No Pertinent History Other Surgical History: TONSILS - Social History Smoking Status: Current every day smoker How long have you smoked: years Exposure to second hand smoke: Yes Drug Use: none Patient Lives Alone: Yes - Female History Hx Now: No - Nursing Vital Signs Nursing Vital Signs: Initial Vital Signs Temperature 98.2 F 07/01/21 15:02 Pulse Rate 82 07/01/21 15:02 Respiratory Rate 22 07/01/21 15:02 Blood Pressure 139/76 07/01/21 15:02 O2 Sat by Pulse Oximetry 93 L 07/01/21 15:02 Pain Scale Pain Intensity 9 - Physical Exam General Appearance: no apparent distress, alert Eye Exam: PERRL/EOMI, eyes nml inspection Ears, Nose, Throat Exam: hearing grossly normal, pharyngeal erythema Neck Exam: normal inspection, supple, full range of motion Respiratory Exam: rhonchi, wheezing, No respiratory distress, No accessory muscle use Cardiovascular/Chest Exam: normal heart sounds, regular rate/rhythm Abdominal/Gastrointestinal Exam: soft, normal bowel sounds, No tenderness Extremity Exam: non-tender, normal range of motion Neurologic Exam: alert, oriented x 3, cooperative, 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 nml as tested, normal mood/affect Skin Exam: normal color SpO2 Interpretation: normal SpO2: 93 O2 Delivery: Room Air - Course EKG Interpreted by Me: RATE Ordered Tests: Medication Summary Discontinued Medications Generic Name Dose Route Start Last Admin Trade Name Hal PRN Reason Stop Dose Admin Albuterol Sulfate 4 puff 07/01/21 16:36 07/01/21 15:55 Albuterol Common Canister Inhaler 07/01/21 16:37 4 puff STAT ONE Administration Albuterol/Ipratropium 3 ml 07/01/21 15:40 Ipratropium/Albuterol Sulfate 3 Ml Ampul.Neb 07/01/21 15:41 STAT ONE Dexamethasone Sodium Phosphate Confirm 07/01/21 18:08 Dexamethasone Sod Phosphate 10 Mg/Ml Administered 07/01/21 18:09 Dose 10 mg .ROUTE .STK-MED ONE Lab/Rad Data: Laboratory Result Diagrams 07/01/21 16:25 07/01/21 16:25 Laboratory Results 07/01/21 07/01/21 07/01/21 Range/Units 16:30 16:25 16:25 WBC (4.0-10.5) K/mm3 RBC (4.1-5.4) M/mm3 Hgb (12.0-16.0) gm/dl Hct (35-47) % MCV (78-100) fl MCH (26-32) pg MCHC (32-36) g/dl RDW (11.5-14.0) % Plt Count (150-450) K/mm3 MPV (7.5-11.0) fl Segmented Neutrophils (36.0-66.0) % Lymphocytes (Manual) (24-44) % Monocytes (Manual) (0.0-12.0) % Atypical Lymphocytes % Platelet Estimate (NORMAL) RBC Morphology Sodium 135 L (137-145) mmol/L Potassium 3.6 (3.5-5.1) mmol/L Chloride 98 (98-107) mmol/L Carbon Dioxide 28 (22-30) mmol/L Anion Gap 12.2 (5-15) MEQ/L BUN 17 (7-17) mg/dL Creatinine 0.66 (0.52-1.04) mg/dL Estimated GFR > 60.0 ML/MIN Glucose 88 (74-106) mg/dL Lactic Acid 1.7 (0.4-2.0) Calcium 8.4 (8.4-10.2) mg/dL Magnesium 2.2 (1.6-2.3) mg/dL Total Bilirubin 0.70 (0.2-1.3) mg/dL AST 49 H (14-36) U/L ALT 38 H (0-35) U/L Alkaline Phosphatase 99 (38-126) U/L Troponin I < 0.012 (0.000-0.034) ng/mL NT-Pro-B Natriuret Pep 428 (0-900) pg/mL Serum Total Protein 6.5 (6.3-8.2) g/dL Albumin 3.2 L (3.5-5.0) g/dL 07/01/21 Range/Units 16:25 WBC 14.2 H (4.0-10.5) K/mm3 RBC 4.45 (4.1-5.4) M/mm3 Hgb 15.3 (12.0-16.0) gm/dl Hct 46.0 (35-47) % MCV 103.4 H (78-100) fl MCH 34.4 H (26-32) pg MCHC 33.3 (32-36) g/dl RDW 15.8 H (11.5-14.0) % Plt Count 414 (150-450) K/mm3 MPV 9.6 (7.5-11.0) fl Segmented Neutrophils 82 H (36.0-66.0) % Lymphocytes (Manual) 13 L (24-44) % Monocytes (Manual) 4 (0.0-12.0) % Atypical Lymphocytes 1 % Platelet Estimate NORMAL (NORMAL) RBC Morphology NORMAL Sodium (137-145) mmol/L Potassium (3.5-5.1) mmol/L Chloride (98-107) mmol/L Carbon Dioxide (22-30) mmol/L Anion Gap (5-15) MEQ/L BUN (7-17) mg/dL Creatinine (0.52-1.04) mg/dL Estimated GFR ML/MIN Glucose (74-106) mg/dL Lactic Acid (0.4-2.0) Calcium (8.4-10.2) mg/dL Magnesium (1.6-2.3) mg/dL Total Bilirubin (0.2-1.3) mg/dL AST (14-36) U/L ALT (0-35) U/L Alkaline Phosphatase (38-126) U/L Troponin I (0.000-0.034) ng/mL NT-Pro-B Natriuret Pep (0-900) pg/mL Serum Total Protein (6.3-8.2) g/dL Albumin (3.5-5.0) g/dL - Progress Progress: improved Air Movement: good Progress Note: 07/01/21 17:58 70 years old with recent COVID-19 is evaluated for increasing shortness of breath. She is maintaining oxygen saturation around 93% on room air while resting. She does not have O2 at home and does not have nebulizer. Chest x-ray did not show any acute process but she has Covid pneumonia. She is given another breathing treatment. Work-up grossly unremarkable including EKG and troponin. I do not think patient needs to be admitted again but have done paperwork and she is given oxygen to go home along with nebulizer which she is advised to use regularly. She is advised to follow-up with her primary care. Discussed signs symptoms of worsening needing return to ER which she seems u nderstanding. Stable for discharge. 07/01/21 18:00 Blood Culture(s) Obtained: Yes Antibiotics given: Yes Counseled pt/family regarding: lab results, diagnosis, need for follow-up, rad results - Departure Departure Disposition: Home Clinical Impression: Pneumonia due to COVID-19 virus, COPD (chronic obstructive pulmonary disease) Respiratory failure Qualifiers: Chronicity: acute Respiratory failure complication: hypoxia Qualified Code(s): J96.01 - Acute respiratory failure with hypoxia Condition: Stable Critical Care Time: No Referrals: BELLE ELENA DO [Primary Care Provider] - Follow up/PCP as directed (1-2 days for reevaluation) Instructions: Chronic Obstructive Pulmonary Disease, Pneumonia, Adult (DC), Exacerbation of COPD (DC) Additional Instructions: Use oxygen all the time. Continue with neb treatments every 4-6 hourly. Follow-up with your primary care for reevaluation in 1 to 2 days. Return to ER if having difficulty breathing, worsening cough, persistent high-grade fever etc. Prescriptions: Albuterol/Ipratropium 3ml Neb* [DUONEB 0.5-3 MG/3 ml Neb] 3 ml IH Q4-6HPRN PRN 15 Days #120 unit PRN Reason: Shortness Of Breath/Wheezing
[2021-07-01] MEDS ORDERED: DECADRON 10MG INJ. ONE (18:08)
== END 2021-07-01 18:47 | disposition home or self-care (01) ==
LOC: ED 14:55
DX: U07.1 COVID-19 (principal); J12.82 Pneumonia due to coronavirus disease 2019; J96.01 Acute respiratory failure with hypoxia; Z72.0 Tobacco use; J44.9 Chronic obstructive pulmonary disease, unspecified; R07.9 Chest pain, unspecified; R05.9 Cough, unspecified; R53.81 Other malaise
CPT/HCPCS: 36000; 36415; 71045; 80053; 83605; 83735; 83880; 84484; 85025; 87040; 93041; 94640; 99284; J1100

== ENCOUNTER 2021-10-17 10:55 | Emergency (ER) | payer MEDICARE ==
[2021-10-17] MEDS ORDERED: XYLOCAINE 1% HCL 20 ML MDV IJ ONE (10:56)
--- NOTE | 2021-10-17 10:57 | ERPHSYRPT ---
- History of Present Illness Time Seen by Provider: 10/17/21 10:57 Source: patient Exam Limitations: no limitations Physician History: This is a 71-year-old [place] female who presents with left hand redness and swelling 3 days after being bitten/scratched by a family cat. The left hand, dorsal aspect has increased in redness, swelling and tenderness and has a central area of small abscess present. Patient has been using topical antibiotic ointment to the site. Patient has taken Planday pain medicine without any problems or side effects. Timing/Duration: day(s) (3) Quality: painful Severity: moderate Location: hands (Dorsal aspect left hand) Possible Causes: other (Cat bite/scratch) Associated Symptoms: swelling/mass/lumps Allergies/Adverse Reactions: codeine Allergy (Severe, Verified 10/17/21 11:08) Difficulty Breathing Penicillins Allergy (Severe, Verified 10/17/21 11:08) Difficulty Swallowing prednisone Adverse Reaction (Severe, Verified 10/17/21 11:08) Vomiting Home Medications: Allopurinol 100 mg [Zyloprim 100 mg] 100 mg PO DAILY 06/26/21 [History] Amlodipine Besylate 5 mg [Norvasc 5 mg] 2.5 mg PO DAILY 06/26/21 [History] Hx Tetanus, Diphtheria Vaccination/Date Given: Yes Hx Influenza Vaccination/Date Given: Yes Hx Pneumococcal Vaccination/Date Given: No Travel Risk - International Travel Have you traveled outside of the country in past 3 weeks: No - Coronavirus Screening Are you exhibiting any of the following symptoms?: No Close contact with a COVID-19 positive Pt in past 14-21 Days: No - Vaccine Status Have you recieved a Covid-19 vaccination: No - Review of Systems Constitutional: No Symptoms Eyes: No Symptoms Ears, Nose, & Throat: No Symptoms Respiratory: No Symptoms Cardiac: No Symptoms Abdominal/Gastrointestinal: No Symptoms Genitourinary Symptoms: No Symptoms Musculoskeletal: No Symptoms Skin: Cellulitis, Other (Small central dorsal aspect left hand abscess) Neurological: No Symptoms Psychological: No Symptoms Endocrine: No Symptoms Hematologic/Lymphatic: No Symptoms Immunological/Allergic: No Symptoms All Other Systems: Reviewed and Negative - Past Medical History Pertinent Past Medical History: Yes Neurological History: No Pertinent History ENT History: No Pertinent History Cardiac History: No Pertinent History Respiratory History: COPD, Emphysema Endocrine Medical History: No Pertinent History Musculoskeletal History: Other GI Medical History: No Pertinent History History: No Pertinent History Psycho-Social History: No Pertinent History Female Reproductive Disorders: No Pertinent History Other Medical History: 2nd digit left hand injury,gout - Past Surgical History Past Surgical History: Yes Neuro Surgical History: No Pertinent History Cardiac: No Pertinent History Respiratory: No Pertinent History Gastrointestinal: Appendectomy Genitourinary: No Pertinent History Musculoskeletal: No Pertinent History Female Surgical History: No Pertinent History Other Surgical History: TONSILS - Social History Smoking Status: Current every day smoker How long have you smoked: years Exposure to second hand smoke: Yes Drug Use: none Patient Lives Alone: Yes - Nursing Vital Signs Nursing Vital Signs: Initial Vital Signs Pulse Rate 95 H 10/17/21 10:58 Respiratory Rate 20 10/17/21 10:58 Blood Pressure 151/91 10/17/21 10:58 O2 Sat by Pulse Oximetry 98 10/17/21 10:58 Pain Scale Pain Intensity 9 - Physical Exam General Appearance: no apparent distress, alert, anxiety Eye Exam: PERRL/EOMI, eyes nml inspection Ears, Nose, Throat Exam: normal ENT inspection, moist mucous membranes Neck Exam: normal inspection, non-tender, supple, full range of motion Respiratory Exam: airway intact, No respiratory distress Gastrointestinal/Abdomen Exam: No tenderness Pelvic Exam: not done Rectal Exam: not done Back Exam: normal inspection, normal range of motion, No CVA tenderness, No vertebral tenderness Extremity Exam: normal range of motion, pelvis stable, inflammation, swelling, tenderness, other (Dorsal aspect left hand with a small area of abscess and pus expressible) Neurologic Exam: alert, oriented x 3, cooperative, bail bonding agent II-XII nml as tested, normal mood/affect, nml cerebellar function, nml station & gait, sensation nml Skin Exam: other (See above left hand findings) Lymphatic Exam: No adenopathy SpO2 Interpretation: normal - Course Nursing assessment & vital signs reviewed: Yes - Progress Progress: unchanged Counseled pt/family regarding: diagnosis, need for follow-up - Departure Departure Disposition: Home Clinical Impression: Cellulitis of left hand, Abscess of left hand Condition: Stable Critical Care Time: No Referrals: BELLE ELENA, [Primary Care Provider] - Follow up/PCP as directed Additional Instructions: May soak left hand 2-3 times a day and Epson salt warm water. Compress the area of swelling in the back of the left hand as instructed each time prior to Epson salts the 2 or 3 times a day as discussed. Do not apply antibiotic ointment to the opening of the left hand bite site. Take your antibiotics and pain medicine as prescribed. Return to the emergency department if symptoms worsen. Follow- up with your primary care doctor for further evaluation management in the event of persistent symptoms. Prescriptions: Hydrocodone/APAP 5/325 [[place] 5/325 mg] 1 each PO Q8H PRN PRN #6 tablet MDD 3 PRN Reason: Pain Metronidazole 500 mg [Flagyl 500 MG] 500 mg PO TID #21 tablet Doxycycline Hyclate 100 mg [Vibramycin 100 MG] 100 mg PO BID #14 tab
[2021-10-17 11:08] VITALS: O2SAT 98
[2021-10-17] MEDS ORDERED: Vibramycin 100 MG PO ONE (11:23)
[2021-10-17] MEDS ORDERED: Rocephin 1000 MG INJ IM ONE (11:23)
[2021-10-17] MEDS ORDERED: NORCO 5/325 MG PO ONE (11:23)
[2021-10-17] MEDS ORDERED: Flagyl 500 MG PO ONE (11:23)
[2021-10-17] MEDS ORDERED: Flagyl 500 MG ONE (11:38)
[2021-10-17] MEDS ORDERED: NORCO 5/325 MG ONE (11:38)
[2021-10-17] MEDS ORDERED: Vibramycin 100 MG ONE (11:38)
[2021-10-17] MEDS ORDERED: Rocephin 1000 MG INJ ONE (11:38)
[2021-10-17 11:53] VITALS: BP 143/86; PULSE 86
== END 2021-10-17 12:00 | disposition home or self-care (01) ==
LOC: ED 10:55
DX: L03.114 Cellulitis of left upper limb (principal); L02.512 Cutaneous abscess of left hand; W55.01XA Bitten by cat, initial encounter; M79.642 Pain in left hand; J43.9 Emphysema, unspecified; Z72.0 Tobacco use; Z79.891 Long term (current) use of opiate analgesic; Z79.899 Other long term (current) drug therapy
CPT/HCPCS: 87070; 96372; 99284; J0696; A9270-GY

== ENCOUNTER 2022-02-23 19:40 | Observation (INO) | payer MEDICARE ==
[2022-02-23 20:05] LABS: Absolute Neutrophil Ct (ANC) 4.12 x10^3/uL (1.4-6.9); Basophil (Absolute #) 0.12 x10^3/uL (0-0.4); Eosinophil % 5.1 % (0.00-5.0); Hematocrit 46.3 % (35-47); Hemoglobin 15.2 g/dL (12.0-16.0); Lymphocytes % 30.7 % (24.0-44.0); Mean Cell Volume 97.7 fL (78-100); Mean Corpuscular Hemoglobin 32.1 pg (26-32); Mean Corpuscular Hgb Concent. 32.8 g/dL (32-36); Mean Platelet Volume 9.6 fL (7.5-11.0); Monocyte (Absolute #) 0.77 x10^3/uL (0.0-1.3); Monocytes % 9.8 % (0.0-12.0); Neutrophil % 52.8 % (36.0-66.0); Platelet Count 324 x10^3/uL (150-450); Red Blood Count 4.74 x10^6/uL (4.1-5.4); Red Cell Distribution Width 13.3 % (11.5-14.0); White Blood Count 7.8 x10^3/uL (4.0-10.5)
[2022-02-23] MEDS ORDERED: DUONEB 0.5-3 MG/3 ml Neb IH ONE ×4 (20:18→21:58)
--- NOTE | 2022-02-23 20:23 | ERPHSYRPT ---
- History of Present Illness Source: patient, EMS Exam Limitations: no limitations Patient Subjective Stated Complaint: pt states she has been short of breath for the last week, wore in the last 3 days and today. Triage Nursing Assessment: pt alert and oriented, answers questions approp. pt arrive per ambulance and pt moves self from ems cot to stretcher without diff. respirations nonlabored with lungs diminished bilat. skin warm and dry. Physician History: 71 yo WF w COPD who is 2L O2 dependent at home presents w dyspnea x1wk. She has developed a mildly productive cough over the last 3 days. Pt smoked 1ppd until 3 months ago. Dyspnea is mainly upon exertion. She denies fever/N/V/D/melena/hematochezia/chest pain. Timing/Duration: other (1week) Activities at Onset: rest Severity of Dyspnea-Max: moderate Severity of Dyspnea-Current: mild Possible Cause: occasional episodes Modifying Factors: Improves With: activity, coughing Associated Symptoms: cough, productive cough, No anxiety, No chest pain/discomfort, No edema, No fever, No insomnia, No loss of appetite, No lightheadedness, No wheezing, No weakness, No ankle swelling, No chills, No hemoptysis, No calf pain, No dizziness, No heaviness, No heart racing, No lightheadedness, No leg swelling, No muscle spasms feet, No muscle spasms hands, No painful breathing, No sweating, No tightness, No tingling face, No tingling hands Allergies/Adverse Reactions: codeine Allergy (Severe, Verified 02/23/22 20:44) Difficulty Breathing Penicillins Allergy (Severe, Verified 02/23/22 20:44) Difficulty Swallowing prednisone Adverse Reaction (Severe, Verified 02/23/22 20:44) Vomiting Home Medications: Amlodipine Besylate 5 mg [Norvasc 5 mg] 2.5 mg PO DAILY 06/26/21 [History] Hx Tetanus, Diphtheria Vaccination/Date Given: Yes Hx Influenza Vaccination/Date Given: Yes Hx Pneumococcal Vaccination/Date Given: No Immunizations Up to Date: Yes Travel Risk - International Travel Have you traveled outside of the country in past 3 weeks: No - Coronavirus Screening Are you exhibiting any of the following symptoms?: Yes Symptoms: Cough: New Onset, Shortness of Breath Close contact with a COVID-19 positive Pt in past 14-21 Days: No - Vaccine Status Have you recieved a Covid-19 vaccination: No - Review of Systems Constitutional: No Symptoms Eyes: No Symptoms Ears, Nose, & Throat: No Symptoms, Nose Congestion, Nose Discharge Respiratory: No Symptoms, Cough, Dyspnea, Dyspnea on Exertion (VEGAS), Wheezing Cardiac: No Symptoms Abdominal/Gastrointestinal: No Symptoms Genitourinary Symptoms: No Symptoms Musculoskeletal: No Symptoms Skin: No Symptoms Neurological: No Symptoms Psychological: No Symptoms Endocrine: No Symptoms Hematologic/Lymphatic: No Symptoms Immunological/Allergic: No Symptoms - Past Medical History Pertinent Past Medical History: Yes Neurological History: No Pertinent History ENT History: No Pertinent History Cardiac History: No Pertinent History Respiratory History: COPD, Emphysema, Pneumonia Endocrine Medical History: No Pertinent History Musculoskeletal History: Other GI Medical History: No Pertinent History History: No Pertinent History Psycho-Social History: No Pertinent History Female Reproductive Disorders: No Pertinent History Other Medical History: 2nd digit left hand injury,gout - Past Surgical History Past Surgical History: Yes Neuro Surgical History: No Pertinent History Cardiac: No Pertinent History Respiratory: No Pertinent History Gastrointestinal: Appendectomy Genitourinary: No Pertinent History Musculoskeletal: No Pertinent History Female Surgical History: No Pertinent History Other Surgical History: TONSILS - Social History Smoking Status: Former smoker How long have you smoked: years Exposure to second hand smoke: Yes Drug Use: none Patient Lives Alone: No - Nursing Vital Signs Nursing Vital Signs: Initial Vital Signs Temperature 98.6 F 02/23/22 19:46 Pulse Rate 86 02/23/22 19:46 Respiratory Rate 18 02/23/22 19:46 Blood Pressure 150/83 02/23/22 19:46 O2 Sat by Pulse Oximetry 97 02/23/22 19:46 Pain Scale Pain Intensity 0 Hypertensive - Physical Exam General Appearance: no apparent distress Eye Exam: PERRL/EOMI, eyes nml inspection Ears, Nose, Throat Exam: hearing grossly normal, normal ENT inspection, normal pharynx, No abnormal TM (R), No abnormal TM (L), No sinus pain/drainage Neck Exam: normal inspection, non-tender, supple, full range of motion, No Brudzinski, No Kernig's, No meningismus, No carotid bruit Respiratory Exam: airway intact, diminished breath sounds (Decreased BS B), prolonged expirations, wheezing (Scattered wheezes) Cardiovascular/Chest Exam: normal heart sounds, regular rate/rhythm, normal peripheral pulses, No murmur Abdominal/Gastrointestinal Exam: soft, normal bowel sounds, No tenderness Extremity Exam: non-tender, normal range of motion, normal inspection, normal capillary refill, no calf tenderness, no pedal edema Peripheral Pulses Exam: carotid (R): 2+, carotid (L): 2+ Neurologic Exam: alert, oriented x 3, cooperative, quiller machine fixer II-XII nml as tested, normal mood/affect, nml cerebellar function, nml station & gait, sensation nml, No motor deficits, No sensory deficit Skin Exam: normal color, warm, dry, No rash Lymphatic Exam: No adenopathy SpO2 Interpretation: normal SpO2: 98 O2 Delivery: Room Air - Course Nursing assessment & vital signs reviewed: Yes EKG Interpreted by Me: RATE (NSR/Rate79/Prolonged QTc/Poor Rwave progression/Flat Twaves) - Radiology Exams Chest X-ray Interpretation: Interpreted by me (COPD) Ordered Tests: Active Orders 24 hr Category Date Time Status EKG-ER Only STAT Care 02/23/22 19:58 Completed Heart-Healthy Diet Diet 02/24/22 Breakfast Active CHEST 1 VIEW (PORTABLE) Stat Exams 02/23/22 19:59 Taken BLOOD CULTURE Stat Lab 02/23/22 23:30 Received CBC AM.LAB Lab 02/24/22 04:00 Ordered CBC W DIFF Stat Lab 02/23/22 20:03 Completed CMP AM.LAB Lab 02/24/22 04:00 Ordered CMP Stat Lab 02/23/22 20:03 Completed Lactic Acid Stat Lab 02/23/22 20:00 Completed NT PRO BNP Stat Lab 02/23/22 20:03 Completed PROTIME WITH INR Stat Lab 02/23/22 20:03 Completed PTT Stat Lab 02/23/22 20:03 Completed TROPONIN Q4H Lab 02/23/22 20:00 Completed TROPONIN Q4H Lab 02/24/22 04:00 Ordered TROPONIN Stat Lab 02/23/22 22:22 Completed Transfer Order Routine Transfer 02/23/22 Completed Medication Summary Generic Name Dose Route Start Last Admin Trade Name Freq PRN Reason Stop Dose Admin Albuterol/Ipratropium 3 ml 02/24/22 03:00 Ipratropium/Albuterol Sulfate 3 Ml Ampul.Neb IH 03/26/22 02:59 Q4HRT [facility] Methylprednisolone Sodium 0 mg 02/24/22 00:00 Succinate 60 mg/ Sterile Water IV 03/26/22 00:00 2 ml Q6HT [facility] Enoxaparin Sodium 30 mg 02/24/22 10:00 Enoxaparin Sodium 40 Mg/0.4 Ml Syringe SQ 03/26/22 09:59 DAILY [facility] Sodium Chloride 1,000 mls @ 80 mls/hr 02/23/22 23:15 Sodium Chloride 0.9% 1000 Ml IV 03/25/22 23:14 .[id number] [facility] Levofloxacin/Dextrose 500 mg in 100 mls @ 100 mls/hr 02/24/22 10:00 Levofloxacin 500mg/100ml D5w IV 03/26/22 09:59 Q24H10 [facility] Discontinued Medications Generic Name Dose Route Start Last Admin Trade Name Freq PRN Reason Stop Dose Admin Albuterol/Ipratropium 3 ml 02/23/22 20:18 02/23/22 20:30 Ipratropium/Albuterol Sulfate 3 Ml Ampul.Neb 02/23/22 20:19 3 ml STAT ONE Administration Albuterol/Ipratropium Confirm 02/23/22 20:27 Ipratropium/Albuterol Sulfate 3 Ml Ampul.Neb Administered 02/23/22 20:28 Dose 3 ml IH .STK-MED ONE Albuterol/Ipratropium 3 ml 02/23/22 21:44 02/23/22 22:00 Ipratropium/Albuterol Sulfate 3 Ml Ampul.Neb IH 02/23/22 21:45 3 ml STAT ONE Administration Albuterol/Ipratropium Confirm 02/23/22 21:58 Ipratropium/Albuterol Sulfate 3 Ml Ampul.Neb Administered 02/23/22 21:59 Dose 3 ml IH .STK-MED ONE Methylprednisolone Sodium 0 mg 02/23/22 20:46 02/23/22 20:48 Succinate 125 mg/ Sterile IV 02/23/22 20:47 125 mg Water 2 ml STAT ONE Administration Levofloxacin/Dextrose 500 mg in 100 mls @ 100 mls/hr 02/23/22 23:10 02/23/22 23:32 Levofloxacin 500mg/100ml D5w IV 02/24/22 00:09 100 ml/hr STAT STA 100 mls/hr Administration Methylprednisolone Sodium Succinate Confirm 02/23/22 20:47 Methylprednis Sod Succ 125 Mg/2 Ml Vial Administered 02/23/22 20:48 Dose 125 mg .ROUTE .CarZumer ONE Sterile Water Confirm 02/23/22 20:47 Water For Injection,Sterile 10 Ml Vial Administered 02/23/22 20:48 Dose 10 ml IJ .MAYKOR-Unda ONE Lab/Rad Data: Laboratory Result Diagrams 02/23/22 20:03 02/23/22 20:03 Laboratory Results 02/23/22 02/23/22 02/23/22 Range/Units 22: 20:03 20:03 WBC (4.0-10.5) x10^3/uL RBC (4.1-5.4) x10^6/uL Hgb (12.0-16.0) g/dL Hct (35-47) % MCV (78-100) fL MCH (26-32) pg MCHC (32-36) g/dL RDW (11.5-14.0) % Plt Count (150-450) x10^3/uL MPV (7.5-11.0) fL Gran % (36.0-66.0) % Immature Gran % (Auto) (0.00-0.4) % Nucleat RBC Rel Count (0.00-0.1) % Eos # (Auto) (0-0.5) x10^3/uL Immature Gran # (Auto) (0.00-0.03) x10^3u/L Absolute Lymphs (auto) (1.0-4.6) x10^3/uL Absolute Monos (auto) (0.0-1.3) x10^3/uL Absolute Nucleated RBC (0.00-0.01) x10^3u/L Lymphocytes % (24.0-44.0) % Monocytes % (0.0-12.0) % Eosinophils % (0.00-5.0) % Basophils % (0.0-0.4) % Absolute Granulocytes (1.4-6.9) x10^3/uL Basophils # (0-0.4) x10^3/uL PT 10.6 (9.4-12.5) SECONDS INR 1.00 (0.8-3.0) APTT 27.8 (25.1-36.5) SECONDS Sodium 137 (137-145) mmol/L Potassium 4.1 (3.5-5.1) mmol/L Chloride 106 (98-107) mmol/L Carbon Dioxide 26 (22-30) mmol/L Anion Gap 9.1 (5-15) MEQ/L BUN 13 (7-17) mg/dL Creatinine 0.60 (0.52-1.04) mg/dL Estimated GFR > 60.0 ML/MIN Glucose 133 H (74-106) mg/dL Lactic Acid (0.4-2.0) Calcium 9.1 (8.4-10.2) mg/dL Total Bilirubin 0.60 (0.2-1.3) mg/dL AST 33 (14-36) U/L ALT 16 (0-35) U/L Alkaline Phosphatase 106 (38-126) U/L Troponin I 0.012 (0.000-0.034) ng/mL NT-Pro-B Natriuret Pep 461 (0-900) pg/mL Serum Total Protein 7.2 (6.3-8.2) g/dL Albumin 4.1 (3.5-5.0) g/dL 02/23/22 02/23/22 02/23/22 Range/Units 20:03 20:00 20:00 WBC 7.8 (4.0-10.5) x10^3/uL RBC 4.74 (4.1-5.4) x10^6/uL Hgb 15.2 (12.0-16.0) g/dL Hct 46.3 (35-47) % MCV 97.7 (78-100) fL MCH 32.1 H (26-32) pg MCHC 32.8 (32-36) g/dL RDW 13.3 (11.5-14.0) % Plt Count 324 (150-450) x10^3/uL MPV 9.6 (7.5-11.0) fL Gran % 52.8 (36.0-66.0) % Immature Gran % (Auto) 0.1 (0.00-0.4) % Nucleat RBC Rel Count 0.0 (0.00-0.1) % Eos # (Auto) 0.40 (0-0.5) x10^3/uL Immature Gran # (Auto) 0.01 (0.00-0.03) x10^3u/L Absolute Lymphs (auto) 2.40 (1.0-4.6) x10^3/uL Absolute Monos (auto) 0.77 (0.0-1.3) x10^3/uL Absolute Nucleated RBC 0.00 (0.00-0.01) x10^3u/L Lymphocytes % 30.7 (24.0-44.0) % Monocytes % 9.8 (0.0-12.0) % Eosinophils % 5.1 H (0.00-5.0) % Basophils % 1.5 (0.0-0.4) % Absolute Granulocytes 4.12 (1.4-6.9) x10^3/uL Basophils # 0.12 (0-0.4) x10^3/uL PT (9.4-12.5) SECONDS INR (0.8-3.0) APTT (25.1-36.5) SECONDS Sodium (137-145) mmol/L Potassium (3.5-5.1) mmol/L Chloride (98-107) mmol/L Carbon Dioxide (22-30) mmol/L Anion Gap (5-15) MEQ/L BUN (7-17) mg/dL Creatinine (0.52-1.04) mg/dL Estimated GFR ML/MIN Glucose (74-106) mg/dL Lactic Acid 1.8 (0.4-2.0) Calcium (8.4-10.2) mg/dL Total Bilirubin (0.2-1.3) mg/dL AST (14-36) U/L ALT (0-35) U/L Alkaline Phosphatase (38-126) U/L Troponin I 0.013 (0.000-0.034) ng/mL NT-Pro-B Natriuret Pep (0-900) pg/mL Serum Total Protein (6.3-8.2) g/dL Albumin (3.5-5.0) g/dL - Progress Progress: improved Progress Note: 02/23/22 23:15 Duoneb x2 w mild improvement Obs per Dr. Mitchell 500mg IV Levaquin Blood Culture(s) Obtained: Yes Antibiotics given: Yes Discussed with : Chelle Will see patient in: hospital (observation) Counseled pt/family regarding: lab results, diagnosis, need for follow-up, rad results - Departure Departure Disposition: Observation Clinical Impression: COPD (chronic obstructive pulmonary disease) Condition: Stable Critical Care Time: No
[2022-02-23 20:25] LABS: ALBUMIN 4.1 g/dL (3.5-5.0); ALKALINE PHOSPHATASE 106 U/L (38-126); ANION GAP 9.1 MEQ/L (5-15); BLOOD UREA NITROGEN 13 mg/dL (7-17); CHLORIDE 106 mmol/L (98-107); Calcium 9.1 mg/dL (8.4-10.2); Carbon Dioxide 26 mmol/L (22-30); EST GLOMERULAR FILTRATION RATE > 60.0 ML/MIN; Glucose 133 mg/dL (74-106); NT PRO BNP 461 pg/mL (0-900); Potassium 4.1 mmol/L (3.5-5.1); SGOT/AST 33 U/L (14-36); SGPT/ALT 16 U/L (0-35); SODIUM 137 mmol/L (137-145); Total Protein 7.2 g/dL (6.3-8.2)
[2022-02-23 20:30] LABS: PROTIME 10.6 SECONDS (9.4-12.5); PTT 27.8 SECONDS (25.1-36.5)
[2022-02-23] MEDS ORDERED: solu-MEDROL 125 MG, Sterile H2O 10 ml 2 ML IV ONE ×2 (20:46)
[2022-02-23] MEDS ORDERED: Sterile H2O 10 ml IJ ONE (20:47)
[2022-02-23] MEDS ORDERED: solu-MEDROL ONE (20:47)
[2022-02-23 20:48] LABS: INFLUENZA A NEGATIVE (NEGATIVE); INFLUENZA B NEGATIVE (NEGATIVE); RESPIRATORY SYNCTIAL VIRUS NEGATIVE (Negative); SARS-CoV-2 Xpert Express NEGATIVE (NEGATIVE)
[2022-02-23] MEDS ORDERED: Levofloxacin 500MG/100ML D5W 500 MG/100 ML BAG IV STA (23:10)
[2022-02-23] MEDS ORDERED: Sodium Chloride 0.9% 1000 ML 1,000 ML IV SCH (23:15)
[2022-02-24] MEDS ORDERED: solu-MEDROL 60 MG, Sterile H2O 10 ml 2 ML IV SCH ×2
[2022-02-24] MEDS ORDERED: Sterile H2O 10 ml IJ ONE (03:56)
[2022-02-24] MEDS ORDERED: solu-MEDROL ONE (03:56)
[2022-02-24] MEDS: solu-MEDROL 60 MG, Sterile H2O 10 ml 2 ML IV SCH ×4 (03:59→10:00)
[2022-02-24 05:14] LABS: Hematocrit 44.9 % (35-47); Hemoglobin 14.5 g/dL (12.0-16.0); Mean Cell Volume 98.9 fL (78-100); Mean Corpuscular Hemoglobin 31.9 pg (26-32); Mean Corpuscular Hgb Concent. 32.3 g/dL (32-36); Mean Platelet Volume 9.8 fL (7.5-11.0); Platelet Count 269 x10^3/uL (150-450); Red Blood Count 4.54 x10^6/uL (4.1-5.4); Red Cell Distribution Width 13.3 % (11.5-14.0); White Blood Count 3.3 x10^3/uL (4.0-10.5)
[2022-02-24 05:39] LABS: ALBUMIN 3.8 g/dL (3.5-5.0); ALKALINE PHOSPHATASE 101 U/L (38-126); ANION GAP 9.2 MEQ/L (5-15); BLOOD UREA NITROGEN 14 mg/dL (7-17); CHLORIDE 105 mmol/L (98-107); Calcium 8.7 mg/dL (8.4-10.2); Carbon Dioxide 26 mmol/L (22-30); Creatinine 1 0.64 mg/dL (0.52-1.04); EST GLOMERULAR FILTRATION RATE > 60.0 ML/MIN; Glucose 273 mg/dL (74-106); Potassium 4.3 mmol/L (3.5-5.1); SGOT/AST 23 U/L (14-36); SGPT/ALT 16 U/L (0-35); SODIUM 136 mmol/L (137-145); Total Protein 6.6 g/dL (6.3-8.2)
[2022-02-24] MEDS: DUONEB 0.5-3 MG/3 ml Neb IH SCH ×3 (07:43→14:25)
--- NOTE | 2022-02-24 08:44 | XRAY ---
Indication: Cough and short of breath. Comparison: July 01, 2021 Portable chest unchanged again demonstrating COPD and a few incidental tiny calcified granulomas. Heart not enlarged. Bony thorax intact again with osteopenia, degenerative changes, scoliosis, and old left rib fractures. No new/acute findings.
[2022-02-24] MEDS ORDERED: Zithromax 500 MG/ 250 ML NaCl Premix 500 MG/250 ML IVPB IV SCH (10:00)
[2022-02-24] MEDS ORDERED: Levofloxacin 500MG/100ML D5W 500 MG/100 ML BAG IV SCH (10:00)
[2022-02-24] MEDS ORDERED: ROCEPHIN 1 Gm-D5w 50 ml Bag** 1 G/50 ML IVPB IV SCH (10:00)
[2022-02-24] MEDS ORDERED: ENOXAPARIN SODIUM SQ SCH (10:00)
[2022-02-24 11:25] VITALS: BP 118/69
[2022-02-24 14:38] VITALS: PULSE 91; O2SAT 94
--- NOTE | 2022-03-12 10:16 | PCM.SSS ---
History of Present Illness - Chief Complaint Chief Complaint: COPD exacerbation Date: 02/24/22 History of Present Illness: is a 71 year old female. Pt. presented to ER with worsening sob over the past 7 days, pt. was admitted for iv abx and steroids regarding current copd exacerbation - Review of Systems Constitutional: No Fever, No Chills Eyes: No Symptoms Ears, Nose, & Throat: No Symptoms Respiratory: Cough, Short Of Breath, Wheezing Cardiac: No Chest Pain, No Edema, No Syncope Abdominal/Gastrointestinal: No Abdominal Pain, No Nausea, No Vomiting, No Diarrhea Genitourinary Symptoms: No Dysuria Musculoskeletal: No Back Pain, No Neck Pain Skin: No Rash Neurological: No Dizziness, No Focal Weakness, No Sensory Changes Psychological: No Symptoms Endocrine: No Symptoms Hematologic/Lymphatic: No Symptoms Immunological/Allergic: No Symptoms Medications & Allergies Home Medications: Home Medication List Amlodipine Besylate 5 mg [Norvasc 5 mg] 2.5 mg PO DAILY 06/26/21 [History Confirmed 02/24/22] Albuterol/Ipratropium 3ml Neb* [DUONEB 0.5-3 MG/3 ml Neb] 3 ml IH Q4-6HPRN PRN 15 Days #120 unit 07/01/21 [Rx Confirmed 02/24/22] Azithromycin 250 mg [Zithromax 250 MG TABLET] 250 mg PO ZPACK #6 tablet 02/24/22 [Rx] Methylprednisolone Packet [Medrol Dosepack] 4 mg PO UD #30 packet 02/24/22 [Rx] PANTOPRAZOLE 40 mg Tablet [Protonix 40MG Tablet] 40 mg PO QAM 30 Days #30 tab 02/24/22 [Rx] Allergies/Adverse Reactions: Allergies Allergy/AdvReac Type Severity Reaction Status Date / Time codeine Allergy Severe Difficulty Verified 02/23/22 20:44 Breathing Penicillins Allergy Severe Difficulty Verified 02/23/22 20:44 Swallowing levofloxacin [From Levaquin] Allergy Mild Itching Verified 02/24/22 03:42 prednisone AdvReac Severe Vomiting Verified 02/23/22 20:44 - Past Medical History Past Medical History: Yes Neurological History: No Pertinent History ENT History: No Pertinent History Cardiac History: No Pertinent History Respiratory History: COPD, Emphysema, Pneumonia Endocrine Medical History: No Pertinent History Musculoskelatal History: Other GI Medical History: No Pertinent History History: No Pertinent History Pyscho-Social History: No Pertinent History Reproductive Disorders: No Pertinent History Comment: 2nd digit left hand injury,gout - Past Surgical History Past Surgical History: Yes Neuro Surgical History: No Pertinent History Cardiac History: No Pertinent History Respiratory Surgery: No Pertinent History GI Surgical History: Appendectomy Genitourinary Surgical Hx: No Pertinent History Musculskeletal Surgical Hx: No Pertinent History Female Surgical History: No Pertinent History Other Surgical History: TONSILS - Social History Smoking Status: Former smoker How long have you smoked: years Exposure to second hand smoke: Yes Alcohol: Rarely Drug Use: none - Physical Exam General Appearance: no apparent distress, alert Neurologic Exam: alert, oriented x 3, cooperative, normal mood/affect, nml cerebellar function, nml station & gait, sensation nml, No motor deficits Eye Exam: PERRL/EOMI, eyes nml inspection Ears, Nose, Throat Exam: normal ENT inspection, TMs normal, pharynx normal, moist mucous membranes Neck Exam: normal inspection, non-tender, supple, full range of motion Respiratory Exam: normal breath sounds, lungs clear, prolonged expirations, No respiratory distress Cardiovascular Exam: regular rate/rhythm, normal heart sounds, normal peripheral pulses Gastrointestinal/Abdomen Exam: soft, normal bowel sounds, No tenderness, No mass Back Exam: normal inspection, normal range of motion, No CVA tenderness, No vertebral tenderness Extremity Exam: normal inspection, normal range of motion, pelvis stable Skin Exam: normal color, warm, dry, No rash Lymphatic Exam: No adenopathy Results - Labs Lab/Micro Results: Microbiology 02/23/22 23:30 Blood Culture Gram Stain - Final Blood Not Reportable Blood Culture - Final NO GROWTH 02/23/22 23:30 Blood Culture Gram Stain - Final Blood Not Reportable Blood Culture - Final NO GROWTH Assessment/Plan (1) COPD (chronic obstructive pulmonary disease) Status: Acute Hospital Summary - Hospital Course Hospital Course: Pt. admitted and started on iv abx and steroids, by following day the patient reported she was back to her baseline and ready for discharge to home. - Vitals & Intake/Output Vital Signs: Vital Signs Temperature 98.0 F 02/24/22 11:24 Pulse Rate 91 H 02/24/22 14:25 Respiratory Rate 20 02/24/22 14:25 Blood Pressure 118/69 02/24/22 11:24 O2 Sat by Pulse Oximetry 94 L 02/24/22 14:25 - Lab Result Diagrams: 02/24/22 04:25 02/24/22 04:25 Micro Results-Entire Visit: Microbiology 02/23/22 23:30 Blood Culture Gram Stain - Final Blood Not Reportable Blood Culture - Final NO GROWTH 02/23/22 23:30 Blood Culture Gram Stain - Final Blood Not Reportable Blood Culture - Final NO GROWTH - Procedures and Test Procedures and Tests throughout Hospitalization: Therapy Orders & Screens 02/23/22 20:36 Respiratory Therapy Assessment DAILY Comment: 02/23/22 23:11 Oxygen Nasal Cannula 2 lpm Comment: - Discharge Discharge Date: 02/24/22 Disposition: Home, Self-Care Condition: Stable Prescriptions: New Methylprednisolone Packet [Medrol Dosepack] 4 mg PO UD #30 packet PANTOPRAZOLE 40 mg Tablet [Protonix 40MG Tablet] 40 mg PO QAM 30 Days #30 tab Azithromycin 250 mg [Zithromax 250 MG TABLET] 250 mg PO ZPACK #6 tablet Continue Amlodipine Besylate 5 mg [Norvasc 5 mg] 2.5 mg PO DAILY Albuterol/Ipratropium 3ml Neb* [DUONEB 0.5-3 MG/3 ml Neb] 3 ml IH Q4-6HPRN PRN 15 Days #120 unit PRN Reason: Shortness Of Breath/Wheezing Instructions: Oxygen Therapy, Adult (DC), Exacerbation of COPD (DC) Forms: Discharge Instructions
== END 2022-02-24 15:26 | disposition home or self-care (01) ==
LOC: ED 19:40 → MED SURG 23:52
PROVIDERS: ADMIT Family Medicine; ATTEND Family Medicine
DX: J44.1 Chronic obstructive pulmonary disease with (acute) exacerbation (principal); Z99.81 Dependence on supplemental oxygen; Z79.899 Other long term (current) drug therapy; Z20.828 Contact with and (suspected) exposure to other viral communicable diseases; Z87.891 Personal history of nicotine dependence
CPT/HCPCS: 0241U; 36000; 36415; 71045; 80053; 83605; 83880; 84484; 85025; 85027; 85610; 85730; 87040; 93005; 94640; 94760; 96374; 99285; G0378; J0456; J1650; J1956; J2930; A9270-GY

== ENCOUNTER 2022-04-06 12:21 | Emergency (ER) | payer MEDICARE ==
--- NOTE | 2022-04-06 12:22 | ERPHSYRPT ---
- History of Present Illness Time Seen by Provider: 04/06/22 12:22 Source: patient, EMS Exam Limitations: no limitations Physician History: This is a 71-year-old white female patient of Dr. Blackmon who has oxygen dependent COPD and wears 2 L of oxygen via nasal cannula and presents with worsening shortness of breath since yesterday. Patient had a significant smoking history and recently quit completely per her report. Patient has a history of gastroesophageal reflux disease, and hypertension. Patient's chart states that she is allergic to steroids however she had no problems using the steroids both intravenously or orally during her last flareup of COPD exace rbation. Specifically she was given intravenous methylprednisolone without any problems. She states that she has occasional flareups of her COPD. She has nonradiating, sharp central chest pain. She has no abdominal pain. She has no nausea vomiting or diarrhea symptoms. She has no fever. Patient was brought into the emergency department by ambulance. Timing/Duration: yesterday, worse Activities at Onset: activity Severity of Dyspnea-Max: moderate Severity of Dyspnea-Current: moderate Possible Cause: occasional episodes Modifying Factors: Improves With: coughing, oxygen Associated Symptoms: cough, No chest pain/discomfort Allergies/Adverse Reactions: codeine Allergy (Severe, Verified 02/23/22 20:44) Difficulty Breathing Penicillins Allergy (Severe, Verified 02/23/22 20:44) Difficulty Swallowing levofloxacin [From Levaquin] Allergy (Mild, Verified 02/24/22 03:42) Itching prednisone Adverse Reaction (Severe, Verified 02/23/22 20:44) Vomiting Home Medications: Amlodipine Besylate 5 mg [Norvasc 5 mg] 2.5 mg PO DAILY 06/26/21 [History] Hx Tetanus, Diphtheria Vaccination/Date Given: Yes Hx Influenza Vaccination/Date Given: Yes Hx Pneumococcal Vaccination/Date Given: No Travel Risk - International Travel Have you traveled outside of the country in past 3 weeks: No - Coronavirus Screening Are you exhibiting any of the following symptoms?: Yes Symptoms: Cough: New Onset, Shortness of Breath - Vaccine Status Have you recieved a Covid-19 vaccination: No - Review of Systems Constitutional: No Symptoms Eyes: No Symptoms Ears, Nose, & Throat: No Symptoms Respiratory: Cough, Dyspnea Cardiac: No Symptoms Abdominal/Gastrointestinal: No Symptoms Genitourinary Symptoms: No Symptoms Musculoskeletal: No Symptoms Skin: No Symptoms Neurological: No Symptoms Psychological: No Symptoms Endocrine: No Symptoms Hematologic/Lymphatic: No Symptoms Immunological/Allergic: No Symptoms All Other Systems: Reviewed and Negative - Past Medical History Pertinent Past Medical History: Yes Neurological History: No Pertinent History ENT History: No Pertinent History Cardiac History: No Pertinent History Respiratory History: COPD, Emphysema, Pneumonia Endocrine Medical History: No Pertinent History Musculoskeletal History: Other GI Medical History: No Pertinent History History: No Pertinent History Psycho-Social History: No Pertinent History Female Reproductive Disorders: No Pertinent History Other Medical History: 2nd digit left hand injury,gout - Past Surgical History Past Surgical History: Yes Neuro Surgical History: No Pertinent History Cardiac: No Pertinent History Respiratory: No Pertinent History Gastrointestinal: Appendectomy Genitourinary: No Pertinent History Musculoskeletal: No Pertinent History Female Surgical History: No Pertinent History Other Surgical History: TONSILS - Social History Smoking Status: Former smoker How long have you smoked: years Exposure to second hand smoke: Yes Drug Use: none Patient Lives Alone: No - Nursing Vital Signs Nursing Vital Signs: Initial Vital Signs Temperature 97.4 F 04/06/22 12:31 Pulse Rate 81 04/06/22 12:31 Respiratory Rate 25 H 04/06/22 12:31 Blood Pressure 122/83 04/06/22 12:31 O2 Sat by Pulse Oximetry 97 04/06/22 12:31 Pain Scale Pain Intensity 0 - Physical Exam General Appearance: no apparent distress, alert, anxiety, cachetic Eye Exam: PERRL/EOMI, eyes nml inspection Ears, Nose, Throat Exam: hearing grossly normal, normal ENT inspection, normal pharynx Neck Exam: normal inspection, non-tender, supple, full range of motion Respiratory Exam: normal breath sounds, lungs clear, airway intact, No chest tenderness, No respiratory distress Cardiovascular/Chest Exam: normal heart sounds, regular rate/rhythm, No murmur Abdominal/Gastrointestinal Exam: soft, normal bowel sounds, No tenderness Rectal Exam: not done Extremity Exam: non-tender, normal range of motion, normal inspection, normal capillary refill, no calf tenderness, no pedal edema, pelvis stable Neurologic Exam: alert, oriented x 3, cooperative, merchandise collector II-XII nml as tested, normal mood/affect, nml cerebellar function, nml station & gait, sensation nml Skin Exam: normal color, warm, dry Lymphatic Exam: No adenopathy SpO2 Interpretation: normal O2 Delivery: Nasal Cannula - Course Nursing assessment & vital signs reviewed: Yes EKG Interpreted by Me: RATE (89), Sinus Rhythm, NORMAL AXIS, NORMAL INTERVALS, NORMAL QRS, NORMAL ST-T, Other (Acute ischemic changes on today's twelve-lead EKG. No change from twelve-lead EKG on 02/23/2022) Ordered Tests: Active Orders 24 hr Category Date Time Status EKG-ER Only STAT Care 04/06/22 12:31 Active IV Insertion STAT Care 04/06/22 12:31 Active Oxygen-ED Only Nasal Cannula 2 lpm Care 04/06/22 12:31 Active Pulse Oximetry (ED) STAT Care 04/06/22 12:31 Active CHEST 1 VIEW (PORTABLE) Stat Exams 04/06/22 12:31 Completed BLOOD CULTURE Stat Lab 04/06/22 12:50 Received CBC W DIFF Stat Lab 04/06/22 12:45 Completed CMP Stat Lab 04/06/22 12:45 Completed D-DIMER QUANTITATIVE Stat Lab 04/06/22 12:45 Completed Lactic Acid Routine Lab 04/06/22 16:00 Completed Lactic Acid Stat Lab 04/06/22 12:31 Completed Lactic Acid Stat Lab 04/06/22 14:40 Completed NT PRO BNP Stat Lab 04/06/22 12:45 Completed TROPONIN Q4H Lab 04/06/22 12:45 Completed TROPONIN Q4H Lab 04/06/22 15:52 Completed TROPONIN Q4H Lab 04/06/22 20:45 Ordered Medication Summary Discontinued Medications Generic Name Dose Route Start Last Admin Trade Name Freq PRN Reason Stop Dose Admin Methylprednisolone Sodium 0 mg 04/06/22 12:45 04/06/22 13:07 Succinate 125 mg/ Sterile IV 04/06/22 12:46 125 mg Water 2 ml STAT ONE Administration Methylprednisolone Sodium Succinate Confirm 04/06/22 13:05 Methylprednis Sod Succ 125 Mg/2 Ml Vial Administered 04/06/22 13:06 Dose 125 mg .ROUTE .STK-MED ONE Sterile Water Confirm 04/06/22 13:05 Water For Injection,Sterile 10 Ml Vial Administered 04/06/22 13:06 Dose 10 ml IJ .STK-MED ONE Lab/Rad Data: Laboratory Result Diagrams 04/06/22 12:45 04/06/22 12:45 Laboratory Results 04/06/22 04/06/2204/06/22 Range/Units 16:00 15:52 14:40 WBC (4.0-10.5) x10^3/uL RBC (4.1-5.4) x10^6/uL Hgb (12.0-16.0) g/dL Hct (35-47) % MCV (78-100) fL MCH (26-32) pg MCHC (32-36) g/dL RDW (11.5-14.0) % Plt Count (150-450) x10^3/uL MPV (7.5-11.0) fL Gran % (36.0-66.0) % Immature Gran % (Auto) (0.00-0.4) % Nucleat RBC Rel Count (0.00-0.1) % Eos # (Auto) (0-0.5) x10^3/uL Immature Gran # (Auto) (0.00-0.03) x10^3u/L Absolute Lymphs (auto) (1.0-4.6) x10^3/uL Absolute Monos (auto) (0.0-1.3) x10^3/uL Absolute Nucleated RBC (0.00-0.01) x10^3u/L Lymphocytes % (24.0-44.0) % Monocytes % (0.0-12.0) % Eosinophils % (0.00-5.0) % Basophils % (0.0-0.4) % Absolute Granulocytes (1.4-6.9) x10^3/uL Basophils # (0-0.4) x10^3/uL D-Dimer (0.0-0.50) mg/L Sodium (137-145) mmol/L Potassium (3.5-5.1) mmol/L Chloride (98-107) mmol/L Carbon Dioxide (22-30) mmol/L Anion Gap (5-15) MEQ/L BUN (7-17) mg/dL Creatinine (0.52-1.04) mg/dL Estimated GFR ML/MIN Glucose (74-106) mg/dL Lactic Acid 1.7 2.9 H (0.4-2.0) Calcium (8.4-10.2) mg/dL Total Bilirubin (0.2-1.3) mg/dL AST (14-36) U/L ALT (0-35) U/L Alkaline Phosphatase (38-126) U/L Troponin I 0.108 H* (0.000-0.034) ng/mL NT-Pro-B Natriuret Pep (0-900) pg/mL Serum Total Protein (6.3-8.2) g/dL Albumin (3.5-5.0) g/dL Influenza Type A Ag (NEGATIVE) Influenza Type B Ag (NEGATIVE) RSV (PCR) (Negative) SARS-CoV-2 (PCR) (NEGATIVE) 04/06/22 04/06/22 04/06/22 Range/Units 12:50 12:45 12:45 WBC (4.0-10.5) x10^3/uL RBC (4.1-5.4) x10^6/uL Hgb (12.0-16.0) g/dL Hct (35-47) % MCV (78-100) fL MCH (26-32) pg MCHC (32-36) g/dL RDW (11.5-14.0) % Plt Count (150-450) x10^3/uL MPV (7.5-11.0) fL Gran % (36.0-66.0) % Immature Gran % (Auto) (0.00-0.4) % Nucleat RBC Rel Count (0.00-0.1) % Eos # (Auto) (0-0.5) x10^3/uL Immature Gran # (Auto) (0.00-0.03) x10^3u/L Absolute Lymphs (auto) (1.0-4.6) x10^3/uL Absolute Monos (auto) (0.0-1.3) x10^3/uL Absolute Nucleated RBC (0.00-0.01) x10^3u/L Lymphocytes % (24.0-44.0) % Monocytes % (0.0-12.0) % Eosinophils % (0.00-5.0) % Basophils % (0.0-0.4) % Absolute Granulocytes (1.4-6.9) x10^3/uL Basophils # (0-0.4) x10^3/uL D-Dimer 0.22 (0.0-0.50) mg/L Sodium (137-145) mmol/L Potassium (3.5-5.1) mmol/L Chloride (98-107) mmol/L Carbon Dioxide (22-30) mmol/L Anion Gap (5-15) MEQ/L BUN (7-17) mg/dL Creatinine (0.52-1.04) mg/dL Estimated GFR ML/MIN Glucose (74-106) mg/dL Lactic Acid (0.4-2.0) Calcium (8.4-10.2) mg/dL Total Bilirubin (0.2-1.3) mg/dL AST (14-36) U/L ALT (0-35) U/L Alkaline Phosphatase (38-126) U/L Troponin I 0.040 H* (0.000-0.034) ng/mL NT-Pro-B Natriuret Pep (0-900) pg/mL Serum Total Protein (6.3-8.2) g/dL Albumin (3.5-5.0) g/dL Influenza Type A Ag NEGATIVE (NEGATIVE) Influenza Type B Ag NEGATIVE (NEGATIVE) RSV (PCR) NEGATIVE (Negative) SARS-CoV-2 (PCR) NEGATIVE (NEGATIVE) 04/06/22 04/06/22 04/06/22 Range/Units 12:45 12:45 12:31 WBC 10.4 (4.0-10.5) x10^3/uL RBC 5.11 (4.1-5.4) x10^6/uL Hgb 16.2 H (12.0-16.0) g/dL Hct 49.4 H (35-47) % MCV 96.7 (78-100) fL MCH 31.7 (26-32) pg MCHC 32.8 (32-36) g/dL RDW 11.9 (11.5-14.0) % Plt Count 465 H (150-450) x10^3/uL MPV 9.4 (7.5-11.0) fL Gran % 52.0 (36.0-66.0) % Immature Gran % (Auto) 0.3 (0.00-0.4) % Nucleat RBC Rel Count 0.0 (0.00-0.1) % Eos # (Auto) 0.26 (0-0.5) x10^3/uL Immature Gran # (Auto) 0.03 (0.00-0.03) x10^3u/L Absolute Lymphs (auto) 3.86 (1.0-4.6) x10^3/uL Absolute Monos (auto) 0.69 (0.0-1.3) x10^3/uL Absolute Nucleated RBC 0.00 (0.00-0.01) x10^3u/L Lymphocytes % 37.3 (24.0-44.0) % Monocytes % 6.7 (0.0-12.0) % Eosinophils % 2.5 (0.00-5.0) % Basophils % 1.2 (0.0-0.4) % Absolute Granulocytes 5.40 (1.4-6.9) x10^3/uL Basophils # 0.12 (0-0.4) x10^3/uL D-Dimer (0.0-0.50) mg/L Sodium 141 (137-145) mmol/L Potassium 4.0 (3.5-5.1) mmol/L Chloride 104 (98-107) mmol/L Carbon Dioxide 27 (22-30) mmol/L Anion Gap 13.6 (5-15) MEQ/L BUN 8 (7-17) mg/dL Creatinine 0.58 (0.52-1.04) mg/dL Estimated GFR > 60.0 ML/MIN Glucose 105 (74-106) mg/dL Lactic Acid 2.6 H (0.4-2.0) Calcium 9.3 (8.4-10.2) mg/dL Total Bilirubin 0.60 (0.2-1.3) mg/dL AST 33 (14-36) U/L ALT 22 (0-35) U/L Alkaline Phosphatase 114 (38-126) U/L Troponin I (0.000-0.034) ng/mL NT-Pro-B Natriuret Pep 366 (0-900) pg/mL Serum Total Protein 8.0 (6.3-8.2) g/dL Albumin 4.7 (3.5-5.0) g/dL Influenza Type A Ag (NEGATIVE) Influenza Type B Ag (NEGATIVE) RSV (PCR) (Negative) SARS-CoV-2 (PCR) (NEGATIVE) - Progress Progress: improved, re-examined Air Movement: good Progress Note: 04/06/22 14:19 Chest x-ray shows chronic COPD changes. There is no acute cardiopulmonary processes 04/06/22 17:43 Medical decision making: Patient states that her shortness of breath and chest pain have improved. However, she has persistent chest tightness. In addition, her troponin 1 level came back 0.104. This is up from 0.04 three hours ago. 04/06/22 18:03 Echo decision-making: This patient has persistent chest pain that has improved but still present. She has persistent chest pain and a persistently elevated and increased troponin 1 level. I spoke with Dr. Devine who is the emergency room physician at [facility] in [facility]. I reviewed the patient history, physical findings and results to the work-up. He accepts the patient in transfer. Blood Culture(s) Obtained: Yes Antibiotics given: No Counseled pt/family regarding: lab results, diagnosis, need for follow-up, rad results - Departure Departure Disposition: Transfer Clinical Impression: Chest pain, Elevated troponin I level, COPD exacerbation Condition: Stable Critical Care Time: No Referrals: BELLE BLACKMON DO [Primary Care Provider] - Follow up/PCP as directed Instructions: Chronic Obstructive Pulmonary Disease
--- NOTE | 2022-04-06 12:49 | XRAY ---
Indication: Short of breath. Comparison: February 23, 2022 Portable chest unchanged again demonstrating COPD and a few tiny calcified granulomas. Heart not enlarged. Bony thorax intact again with osteopenia, degenerative changes, scoliosis, and old left 5/6 rib fractures. No new/acute findings.
[2022-04-06] MEDS ORDERED: Sterile H2O 10 ml IJ ONE (13:05)
[2022-04-06] MEDS ORDERED: solu-MEDROL ONE (13:05)
[2022-04-06 13:07] LABS: Basophil (Absolute #) 0.12 x10^3/uL (0-0.4); Eosinophil % 2.5 % (0.00-5.0); Eosinophil (Absolute #) 0.26 x10^3/uL (0-0.5); Hematocrit 49.4 % (35-47); Hemoglobin 16.2 g/dL (12.0-16.0); Lymphocyte (Absolute #) 3.86 x10^3/uL (1.0-4.6); Lymphocytes % 37.3 % (24.0-44.0); Mean Cell Volume 96.7 fL (78-100); Mean Corpuscular Hemoglobin 31.7 pg (26-32); Mean Corpuscular Hgb Concent. 32.8 g/dL (32-36); Mean Platelet Volume 9.4 fL (7.5-11.0); Monocyte (Absolute #) 0.69 x10^3/uL (0.0-1.3); Monocytes % 6.7 % (0.0-12.0); Platelet Count 465 x10^3/uL (150-450); Red Blood Count 5.11 x10^6/uL (4.1-5.4); Red Cell Distribution Width 11.9 % (11.5-14.0); White Blood Count 10.4 x10^3/uL (4.0-10.5)
[2022-04-06] MEDS: solu-MEDROL 125 MG, Sterile H2O 10 ml 2 ML IV ONE ×2 (13:07)
[2022-04-06 13:37] LABS: ALBUMIN 4.7 g/dL (3.5-5.0); ALKALINE PHOSPHATASE 114 U/L (38-126); ANION GAP 13.6 MEQ/L (5-15); BLOOD UREA NITROGEN 8 mg/dL (7-17); CHLORIDE 104 mmol/L (98-107); Calcium 9.3 mg/dL (8.4-10.2); Carbon Dioxide 27 mmol/L (22-30); Creatinine 1 0.58 mg/dL (0.52-1.04); EST GLOMERULAR FILTRATION RATE > 60.0 ML/MIN; Glucose 105 mg/dL (74-106); NT PRO BNP 366 pg/mL (0-900); SGOT/AST 33 U/L (14-36); SGPT/ALT 22 U/L (0-35); SODIUM 141 mmol/L (137-145)
[2022-04-06 13:45] LABS: INFLUENZA A NEGATIVE (NEGATIVE); INFLUENZA B NEGATIVE (NEGATIVE); RESPIRATORY SYNCTIAL VIRUS NEGATIVE (Negative); SARS-CoV-2 Xpert Express NEGATIVE (NEGATIVE)
[2022-04-06 19:24] VITALS: BP 111/68; PULSE 85; O2SAT 99
== END 2022-04-06 19:51 | disposition short-term general hospital (02) ==
LOC: ED 12:21
DX: R77.8 Other specified abnormalities of plasma proteins (principal); J44.1 Chronic obstructive pulmonary disease with (acute) exacerbation; R07.9 Chest pain, unspecified; R06.02 Shortness of breath; Z99.81 Dependence on supplemental oxygen; I10 Essential (primary) hypertension; Z79.899 Other long term (current) drug therapy; Z28.310 Unvaccinated for COVID-19; Z20.828 Contact with and (suspected) exposure to other viral communicable diseases
CPT/HCPCS: 0241U; 36000; 36415; 71045; 80053; 83605; 83880; 84484; 85025; 85379; 87040; 93005; 94760; 96374; 99285; J2930

== ENCOUNTER 2022-11-02 10:44 | Emergency (ER) | payer MEDICARE ==
[2022-11-02] MEDS ORDERED: Zofran 4 MG/2 ML VIAL IV ONE (11:05)
[2022-11-02] MEDS ORDERED: TORAdol 30 mg Injection IV ONE (11:05)
[2022-11-02] MEDS ORDERED: Sodium Chloride 0.9% 1000 ML 1,000 ML IV STA (11:05)
[2022-11-02 11:18] LABS: Absolute Neutrophil Ct (ANC) 5.57 x10^3/uL (1.4-6.9); BASOPHIL % 0.9 % (0.0-0.4); Basophil (Absolute #) 0.08 x10^3/uL (0-0.4); Eosinophil % 1.8 % (0.00-5.0); Eosinophil (Absolute #) 0.16 x10^3/uL (0-0.5); Hematocrit 48.2 % (35-47); Hemoglobin 15.3 g/dL (12.0-16.0); IMMATURE GRAN # 0.04 x10^3u/L (0.00-0.03); IMMATURE GRAN % 0.5 % (0.00-0.4); Lymphocyte (Absolute #) 2.19 x10^3/uL (1.0-4.6); Mean Corpuscular Hemoglobin 31.1 pg (26-32); Mean Corpuscular Hgb Concent. 31.7 g/dL (32-36); Mean Platelet Volume 8.9 fL (7.5-11.0); Monocyte (Absolute #) 0.72 x10^3/uL (0.0-1.3); Monocytes % 8.2 % (0.0-12.0); Neutrophil % 63.6 % (36.0-66.0); Platelet Count 333 x10^3/uL (150-450); Red Blood Count 4.92 x10^6/uL (4.1-5.4); Red Cell Distribution Width 13.7 % (11.5-14.0); White Blood Count 8.8 x10^3/uL (4.0-10.5)
--- NOTE | 2022-11-02 11:18 | ERPHSYRPT ---
- History of Present Illness Time Seen by Provider: 11/02/22 10:53 Source: patient Exam Limitations: no limitations Patient Subjective Stated Complaint: Pt states "I have had abdominal pain for the past 4 days and I had a stool yesterday that was hard and looked really dark and when I wiped there was blood." Triage Nursing Assessment: Pt presented alert and oriented X 3, skin pwd. Pt ambualtes with a slow steady gait, able to speak in clear full sentences pt in no apparent respiratory distress. Physician History: Patient is here with right lower quadrant pain. Has been going on for the past 3 to 4 days. No falls or trauma. No other fever or chills. Patient states that she had a hard stool yesterday. She had some blood when she was wiping. However, did not have any dark or tarry stools. Allergies/Adverse Reactions: codeine Allergy (Severe, Verified 10/04/22 15:45) Difficulty Breathing Penicillins Allergy (Severe, Verified 10/04/22 15:45) Difficulty Swallowing levofloxacin [From Levaquin] Allergy (Mild, Verified 10/04/22 15:45) Itching prednisone Adverse Reaction (Severe, Verified 10/04/22 15:45) Vomiting Home Medications: Amlodipine Besylate 5 mg [Norvasc 5 mg] 2.5 mg PO DAILY 06/26/21 [History] Fluticasone/Umeclidin/Vilanter [Trelegy Ellipta 100-62.5-25] 1 dose IH UD 10/04/22 [History] Melatonin 1 tab PO HS PRN PRN 10/04/22 [History] Metoprolol Tartrate 25 mg [Lopressor 25MG Tab] 25 mg PO UD 10/04/22 [History] Hx Tetanus, Diphtheria Vaccination/Date Given: Yes Hx Influenza Vaccination/Date Given: Yes Hx Pneumococcal Vaccination/Date Given: No Immunizations Up to Date: Yes Travel Risk - International Travel Have you traveled outside of the country in past 3 weeks: No - Coronavirus Screening Are you exhibiting any of the following symptoms?: No Close contact with a COVID-19 positive Pt in past 14-21 Days: No - Vaccine Status Have you recieved a Covid-19 vaccination: No - Review of Systems Constitutional: No Fever, No Chills Eyes: No Symptoms Ears, Nose, & Throat: No Symptoms Respiratory: No Cough, No Dyspnea Cardiac: No Chest Pain, No Edema, No Syncope Abdominal/Gastrointestinal: Abdominal Pain, No Nausea, No Vomiting, No Diarrhea Genitourinary Symptoms: No Dysuria Musculoskeletal: No Back Pain, No Neck Pain Skin: No Rash Neurological: No Dizziness, No Focal Weakness, No Sensory Changes Psychological: No Symptoms Endocrine: No Symptoms All Other Systems: Reviewed and Negative - Past Medical History Pertinent Past Medical History: Yes Neurological History: No Pertinent History ENT History: No Pertinent History Cardiac History: Hypertension, Myocardial Infarction (ID) Respiratory History: COPD, Emphysema, Pneumonia Endocrine Medical History: No Pertinent History Musculoskeletal History: Other GI Medical History: No Pertinent History History: No Pertinent History Psycho-Social History: No Pertinent History Female Reproductive Disorders: No Pertinent History Other Medical History: 2nd digit left hand injury,gout - Past Surgical History Past Surgical History: Yes Neuro Surgical History: No Pertinent History Cardiac: No Pertinent History Respiratory: No Pertinent History Gastrointestinal: Appendectomy Genitourinary: No Pertinent History Musculoskeletal: No Pertinent History Female Surgical History: No Pertinent History Other Surgical History: TONSILS - Social History Smoking Status: Former smoker How long have you smoked: years Exposure to second hand smoke: Yes Drug Use: none Patient Lives Alone: No - Nursing Vital Signs Nursing Vital Signs: Initial Vital Signs Temperature 97.2 F 11/02/22 10:57 Pulse Rate 101 H 11/02/22 10:57 Respiratory Rate 20 11/02/22 10:57 Blood Pressure 106/68 11/02/22 10:57 O2 Sat by Pulse Oximetry 99 11/02/22 10:57 Pain Scale Pain Intensity 0 - Physical Exam General Appearance: no apparent distress, alert Eye Exam: PERRL/EOMI, eyes nml inspection Ears, Nose, Throat Exam: normal ENT inspection, TMs normal, pharynx normal, mo ist mucous membranes Neck Exam: normal inspection, non-tender, supple, full range of motion Respiratory Exam: normal breath sounds, lungs clear, No respiratory distress Cardiovascular Exam: regular rate/rhythm, normal heart sounds, normal peripheral pulses Gastrointestinal/Abdomen Exam: soft, normal bowel sounds, other (Right lower quadrant tenderness without rebound or guarding), No tenderness, No mass Back Exam: normal inspection, normal range of motion, No CVA tenderness, No vertebral tenderness Extremity Exam: normal inspection, normal range of motion, pelvis stable Neurologic Exam: alert, oriented x 3, cooperative, normal mood/affect, nml cerebellar function, nml station & gait, sensation nml, No motor deficits Skin Exam: normal color, warm, dry, No rash Lymphatic Exam: No adenopathy SpO2: 99 - Course Nursing assessment & vital signs reviewed: Yes Ordered Tests: Active Orders 24 hr Category Date Time Status EKG-ER Only STAT Care 11/02/22 11:05 Active IV Insertion STAT Care 11/02/22 11:05 Active ABDOMEN AND PELVIS W CONTRAST [CT] Stat Exams 11/02/22 11:05 Completed CHEST 1 VIEW (PORTABLE) Stat Exams 11/02/22 11:05 Completed CBC W DIFF Stat Lab 11/02/22 11:16 Completed CMP Stat Lab 11/02/22 11:16 Completed CULTURE,URINE Stat Lab 11/02/22 11:13 Received LIPASE Stat Lab 11/02/22 11:16 Completed UA W/RFX UR CULTURE Stat Lab 11/02/22 11:13 Completed Medication Summary Discontinued Medications Generic Name Dose Route Start Last Admin Trade Name Wesleyq PRN Reason Stop Dose Admin Sodium Chloride 1,000 mls @ 999 mls/hr 11/02/22 11:05 11/02/22 13:11 Sodium Chloride 0.9% 1000 Ml IV 11/02/22 12:05 Infused .Q1H1M STA Infusion Sodium Chloride Confirm 11/02/22 12:06 Sodium Chloride 0.9% 1000 Ml Administered 11/02/22 12:07 Dose 1,000 mls @ ud .ROUTE .STK-MED ONE Ketorolac Tromethamine 30 mg 11/02/22 11:05 11/02/22 12:07 Ketorolac Tromethamine 30 Mg/Ml Inj IV 11/02/22 11:06 30 mg STAT ONE Administration Ketorolac Tromethamine Confirm 11/02/22 12:06 Ketorolac Tromethamine 30 Mg/Ml Inj Administered 11/02/22 12:07 Dose 30 mg .ROUTE .STK-MED ONE Ondansetron HCl 4 mg 11/02/22 11:05 11/02/22 12:07 Ondansetron Hcl 4 Mg/2 Ml Vial IV 11/02/22 11:06 4 mg STAT ONE Administration Ondansetron HCl Confirm 11/02/22 12:06 Ondansetron Hcl 4 Mg/2 Ml Vial Administered 11/02/22 12:07 Dose 4 mg .ROUTE .STK-MED ONE Lab/Rad Data: Laboratory Result Diagrams 11/02/22 11:16 11/02/22 11:16 Laboratory Results 11/02/22 11/02/22 11/02/22 Range/Units 11:16 11:16 11:13 WBC 8.8 (4.0-10.5) x10^3/uL RBC 4.92 (4.1-5.4) x10^6/uL Hgb 15.3 (12.0-16.0) g/dL Hct 48.2 H (35-47) % MCV 98.0 (78-100) fL MCH 31.1 (26-32) pg MCHC 31.7 L (32-36) g/dL RDW 13.7 (11.5-14.0) % Plt Count 333 (150-450) x10^3/uL MPV 8.9 (7.5-11.0) fL Gran % 63.6 (36.0-66.0) % Immature Gran % (Auto) 0.5 H (0.00-0.4) % Nucleat RBC Rel Count 0.0 (0.00-0.1) % Eos # (Auto) 0.16 (0-0.5) x10^3/uL Immature Gran # (Auto) 0.04 H (0.00-0.03) x10^3u/L Absolute Lymphs (auto) 2.19 (1.0-4.6) x10^3/uL Absolute Monos (auto) 0.72 (0.0-1.3) x10^3/uL Absolute Nucleated RBC 0.00 (0.00-0.01) x10^3u/L Lymphocytes % 25.0 (24.0-44.0) % Monocytes % 8.2 (0.0-12.0) % Eosinophils % 1.8 (0.00-5.0) % Basophils % 0.9 (0.0-0.4) % Absolute Granulocytes 5.57 (1.4-6.9) x10^3/uL Basophils # 0.08 (0-0.4) x10^3/uL Sodium 138 (137-145) mmol/L Potassium 4.3 (3.5-5.1) mmol/L Chloride 105 (98-107) mmol/L Carbon Dioxide 24 (22-30) mmol/L Anion Gap 13.2 (5-15) MEQ/L BUN 10 (7-17) mg/dL Creatinine 0.70 (0.52-1.04) mg/dL Estimated GFR > 60.0 ML/MIN Glucose 101 (74-106) mg/dL Calcium 8.9 (8.4-10.2) mg/dL Total Bilirubin 0.90 (0.2-1.3) mg/dL AST 36 (14-36) U/L ALT 15 (0-35) U/L Alkaline Phosphatase 76 (38-126) U/L Serum Total Protein 7.8 (6.3-8.2) g/dL Albumin 4.2 (3.5-5.0) g/dL Lipase 36 (23-300) U/L Urine Color Yellow (Yellow) Urine Appearance Cloudy A (Clear) Urine pH 6.5 (4.6-8.0) Ur Specific [place] 1.020 (1.005-1.030) Urine Protein Negative (Negative) Urine Glucose (UA) Negative (Negative) mg/dL Urine Ketones Trace A (Negative) Urine Blood Negative (Negative) Urine Nitrite Positive A (Negative) Urine Bilirubin Negative (Negative) Urine Urobilinogen 1.0 A (0.2) mg/dL Ur Leukocyte Esterase Moderate A (Negative) U Hyaline Cast (Auto) 3-5 A (0-2) /LPF Urine Microscopic RBC 0-2 (0-5) /HPF Urine Microscopic WBC 11-20 A (0-5) /HPF Ur Epithelial Cells None Seen (None Seen) /HPF Urine Bacteria Many A (None Seen) /HPF Urine Culture Reflexed YES (NO) - Progress Progress: improved Progress Note: 11/02/22 11:17 differential diagnosis includes kidney stone, compression fracture, infection, UTI, triple AAA - basic labs including: CBC, lipase, CMP, UA - insert IV for fluids, pain meds, nausea control - consider imaging: CT ab/pelvis 11/02/22 13:17 Patient feeling improved with medication today. She does appear to have a UTI. Will treat with antibiotics going home. Urine culture sent. I do believe that the UTI is the source of her pain. We did obtain a CT scan. This demonstrated the following: Impression: 1. Abnormal circumferential wall thickening hepatic flexure of colon with stranding and intraluminal narrowing concerning for malignancy. Doubt focal colitis. Direct endoscopy may yield further information. I did discuss the above results with the patient. Patient states that she has never had a colonoscopy before. She has a long history of smoking. Patient very well may have colon cancer today. However, no acute reason to admit patient to the hospital. She will need a urgent outpatient colonoscopy. She states that she follows with Dr. Elise. She will follow-up with Dr. Blackmon to get this arranged. She may return here sooner for any new or changing symptoms. I did discuss all this with the patient. She states understanding. Counseled pt/family regarding: lab results, diagnosis, need for follow-up, rad results - Departure Departure Disposition: Home Clinical Impression: UTI (urinary tract infection), Colon wall thickening Condition: Stable Critical Care Time: No Referrals: BELLE BLACKMON, [Primary Care Provider] - Follow up/PCP as directed Instructions: Urinary Tract Infection, Adult (DC) Additional Instructions: Abnormal circumferential wall thickening hepatic flexure of colon with stranding and intraluminal narrowing concerning for malignancy. Doubt focal colitis. Direct endoscopy may yield further information. Follow up with your P CP for referral to the neurology physician or other physician to do endoscopic. Prescriptions: levoFLOXacin [Levofloxacin] 750 mg PO DAILY 5 Days #5 tablet
[2022-11-02 11:22] LABS: Appearance Cloudy (Clear); Bacteria Many /HPF (None Seen); Bilirubin Negative (Negative); Blood Negative (Negative); Epithelial Cells None Seen /HPF (None Seen); Glucose, Urine Negative (Negative); Ketones Trace (Negative); Leukocyte Esterase Moderate (Negative); Nitrite Positive (Negative); Ph 6.5 (4.6-8.0); Protein,Urine Dip Negative (Negative); RBC 0-2 /HPF (0-5)
--- NOTE | 2022-11-02 11:36 | XRAY ---
Indication: Pneumonia. Comparison: April 06, 2022 Portable chest again demonstrates COPD and tiny left mid lung calcified granulomas. No focal infiltrate, consolidation, or large effusion. Heart not enlarged. Bony thorax intact again with osteopenia, mild degenerative changes, old left rib fractures, and mild dextroscoliosis. Impression: Continued nonacute chest with chronic features.
[2022-11-02 11:37] LABS: ALBUMIN 4.2 g/dL (3.5-5.0); ALKALINE PHOSPHATASE 76 U/L (38-126); ANION GAP 13.2 MEQ/L (5-15); BLOOD UREA NITROGEN 10 mg/dL (7-17); CHLORIDE 105 mmol/L (98-107); Calcium 8.9 mg/dL (8.4-10.2); Carbon Dioxide 24 mmol/L (22-30); EST GLOMERULAR FILTRATION RATE > 60.0 ML/MIN; Glucose 101 mg/dL (74-106); LIPASE 36 U/L (23-300); Potassium 4.3 mmol/L (3.5-5.1); SGOT/AST 36 U/L (14-36); SGPT/ALT 15 U/L (0-35); SODIUM 138 mmol/L (137-145); Total Protein 7.8 g/dL (6.3-8.2)
[2022-11-02 11:43] LABS: ADD URINE CULTURE? YES (NO)
[2022-11-02] MEDS ORDERED: Zofran 4 MG/2 ML VIAL ONE (12:06)
[2022-11-02] MEDS ORDERED: Sodium Chloride 0.9% 1000 ML 1,000 ML ONE (12:06)
[2022-11-02] MEDS ORDERED: TORAdol 30 mg Injection ONE (12:06)
[2022-11-02 12:08] VITALS: BP 112/67
--- NOTE | 2022-11-02 12:38 | XRAY ---
Indication: Right lower quadrant pain. Blood in stool. Multiple contiguous axial images obtained through the abdomen and pelvis using 60 cc Isovue 370 contrast. Comparison: None Lung bases clear with incidental pulmonary emphysema. Heart not enlarged. Noncontrasted stomach and bowel loops appear nonobstructed. Appendectomy reported. Scattered radiopacities throughout the colon presumed ingested medication/bismuth or barium. Moderate debris in the ascending colon. Hepatic flexure of colon demonstrates short segment of abnormal circumferential wall thickening up to 9 mm with pericolonic stranding and intraluminal narrowing concerning for malignancy. Less likely focal colitis. No free fluid/air. Both kidneys enhance and excrete. 1.4 cm left upper and 0.9 cm right mid renal cysts. No suspicious solid renal mass, hydronephrosis, or hydroureter. Inferior right lobe liver demonstrates 0.7 cm cyst. Remaining liver, gallbladder, pancreas, spleen, adrenal glands, kidneys, ureters, bladder, and uterus are unremarkable. Mild scattered aortoiliac calcifications. No AAA or pathologic retroperitoneal lymphadenopathy. Osseous structures intact. Impression: 1. Abnormal circumferential wall thickening hepatic flexure of colon with stranding and intraluminal narrowing concerning for malignancy. Doubt focal colitis. Direct endoscopy may yield further information. 2. Chronic findings including pulmonary emphysema, bilateral renal cysts, hepatic cyst, and arteriosclerotic disease.
[2022-11-02 13:10] VITALS: PULSE 60
[2022-11-02 13:19] VITALS: O2SAT 99
== END 2022-11-02 13:20 | disposition home or self-care (01) ==
LOC: ED 10:44 → UNDOADMOB 11:30 → MED SURG 11:30 → ED 13:20
DX: N39.0 Urinary tract infection, site not specified (principal); R93.3 Abnormal findings on diagnostic imaging of other parts of digestive tract; R10.31 Right lower quadrant pain; I10 Essential (primary) hypertension; J44.9 Chronic obstructive pulmonary disease, unspecified; Z79.899 Other long term (current) drug therapy; Z28.310 Unvaccinated for COVID-19
CPT/HCPCS: 36000; 36415; 71045; 74177; 80053; 81001; 83690; 85025; 87077; 87086; 87186; 93005; 96360; 96374; 96375; 99284; J1885; J2405

== ENCOUNTER 2022-11-22 07:28 | Day surgery (SDC) | payer MEDICARE ==
[~2022-11-22 07:28] MED LIST: Visionblue IO ONE
[2022-11-22] MEDS ORDERED: Epinephrine Preservative Free 1 MG/ML IJ ONE (07:29)
[2022-11-22] MEDS ORDERED: cefUROXime sodium 0.005 GM in Sodium Chloride Flush 30 ML*** 0.5 ML IJ ONE (07:30)
[2022-11-22] MEDS ORDERED: BETADINE 5% OPHTHALMIC 30 ML OP ONE (07:30)
[2022-11-22] MEDS ORDERED: TETRACAINE 0.5% STERI-UNIT SOL OP ONE ×2 (07:30)
[2022-11-22] MEDS ORDERED: Ak-Dilate OPHTHALMIC*** 1.065 ML, Cyclogyl 1% OPHTH SOL 1.065 ML, OCUFEN OPHTH*** 0.435 ML OP ONE ×3 (07:30)
[2022-11-22] MEDS ORDERED: Lactated Ringers 1,000 ML IV SCH (07:30)
[2022-11-22] MEDS ORDERED: Lactated Ringers 1,000 ML IV ONE (08:18)
[2022-11-22] MEDS ORDERED: ACETAZOLAMIDE 250 MG TABLET PO ONE (09:30)
[2022-11-22] MEDS ORDERED: Zofran 4 MG/2 ML VIAL IV PRN (09:30)
[2022-11-22] MEDS ORDERED: TOBRAMYCIN-DEXAMETH OPHTH SUSP OP SCH (09:30)
[2022-11-22] MEDS ORDERED: DIPRIVAN 200 MG/20 ML IV ONE (10:55)
[2022-11-22 11:48] VITALS: BP 120/73; PULSE 63; O2SAT 96
== END 2022-11-22 11:48 | disposition home or self-care (01) ==
LOC: SDC 07:28
PROVIDERS: ATTEND Ophthalmology
DX: H25.812 Combined forms of age-related cataract, left eye (principal)
CPT/HCPCS: 66982; 99100; C1780; J0171; J2704; A9270-GY

== ENCOUNTER 2022-12-01 09:19 | Emergency (ER) | payer MEDICARE ==
--- NOTE | 2022-12-01 09:24 | ERPHSYRPT ---
- History of Present Illness Time Seen by Provider: 12/01/22 09:23 Historian: patient Exam Limitations: no limitations Physician History: This 72-year-old white female patient of Dr. Elise who presents with right lower quadrant abdominal pain. Patient has had an appendectomy in the past. Patient was seen in this emergency department on 11/02/2022 and diagnosed with a urinary tract infection and was found on a CAT scan of the abdomen pelvis at that time with an abnormal thickening of the hepatic flexure colon with stranding and intraluminal narrowing that was concerning for malignancy. Since that time patient's urinary tract infection was treated with Levaquin and patient followed up with Dr. Elise who referred her to Dr. Julian and a colonoscopy is scheduled for December 26. Patient is here today because she is having more pain in the right lower quadrant. Patient has a history of hypertension, COPD, coronary artery disease, and gastroesophageal reflux disease. Timing/Duration: week(s) (4), worse Activities at Onset: none Quality: aching Abdominal Pain Onset Location: RLQ Pain Radiation: no radiation Severity of Pain-Max: mild Severity of Pain-Current: mild Associated Symptoms: denies symptoms Previous symptoms: same symptoms as today, recently seen (11/02/2022 in this emergency department for same complaint), recently treated Allergies/Adverse Reactions: codeine Allergy (Severe, Verified 12/01/22 09:31) Difficulty Breathing Penicillins Allergy (Severe, Verified 12/01/22 09:31) Difficulty Swallowing levofloxacin [From Levaquin] Allergy (Mild, Verified 12/01/22 09:31) Itching prednisone Adverse Reaction (Severe, Verified 12/01/22 09:31) Vomiting Home Medications: Amlodipine Besylate 5 mg [Norvasc 5 mg] 2.5 mg PO DAILY 06/26/21 [History] Fluticasone/Umeclidin/Vilanter [Trelegy Ellipta 100-62.5-25] 1 dose IH UD 10/04/22 [History] Melatonin 10 tab PO HS 10/04/22 [History] Metoprolol Tartrate 25 mg [Lopressor 25MG Tab] 12.5 mg PO BID 10/04/22 [History] Albuterol 2.5 mg/3 ml Neb [Proventil 2.5 mg/3 ml Neb] 1 neb PO TID 12/01/22 [History] Albuterol Sulfate [Albuterol Sulfate Hfa] 2 puff PO TID PRN 12/01/22 [History] Hx Tetanus, Diphtheria Vaccination/Date Given: Yes Hx Influenza Vaccination/Date Given: Yes Hx Pneumococcal Vaccination/Date Given: No Travel Risk - International Travel Have you traveled outside of the country in past 3 weeks: No - Coronavirus Screening Are you exhibiting any of the following symptoms?: No Close contact with a COVID-19 positive Pt in past 14-21 Days: No - Vaccine Status Have you recieved a Covid-19 vaccination: No - Review of Systems Constitutional: No Symptoms Eyes: No Symptoms Ears, Nose, & Throat: No Symptoms Respiratory: No Symptoms Cardiac: No Symptoms Abdominal/Gastrointestinal: Abdominal Pain, Appetite Changes Genitourinary Symptoms: No Symptoms Musculoskeletal: No Symptoms Skin: No Symptoms Neurological: No Symptoms Psychological: No Symptoms Endocrine: No Symptoms Hematologic/Lymphatic: No Symptoms - Past Medical History Pertinent Past Medical History: Yes Neurological History: No Pertinent History ENT History: No Pertinent History Cardiac History: Hypertension, Myocardial Infarction ([place]) Respiratory History: COPD, Emphysema, Pneumonia Endocrine Medical History: No Pertinent History Musculoskeletal History: Other GI Medical History: No Pertinent History History: No Pertinent History Psycho-Social History: No Pertinent History Female Reproductive Disorders: No Pertinent History Other Medical History: 2nd digit left hand injury,gout - Past Surgical History Past Surgical History: Yes Neuro Surgical History: No Pertinent History Cardiac: No Pertinent History Respiratory: No Pertinent History Gastrointestinal: Appendectomy Genitourinary: No Pertinent History Musculoskeletal: No Pertinent History Female Surgical History: No Pertinent History Other Surgical History: TONSILS - Social History Smoking Status: Former smoker How long have you smoked: years Exposure to second hand smoke: Yes Drug Use: none Patient Lives Alone: No - Nursing Vital Signs Nursing Vital Signs: Initial Vital Signs Temperature 96.8 F 12/01/22 09:33 Pain Scale Pain Intensity 9 - Physical Exam General Appearance: no apparent distress, alert, anxiety, thin Eye Exam: PERRL/EOMI, eyes nml inspection Ears, Nose, Throat Exam: moist mucous membranes, other (Generalized poor dentition) Neck Exam: normal inspection, non-tender, supple, full range of motion Respiratory Exam: normal breath sounds, lungs clear, No chest tenderness, No respiratory distress Cardiovascular Exam: regular rate/rhythm, normal heart sounds, normal peripheral pulses Gastrointestinal/Abdomen Exam: soft, normal bowel sounds, tenderness (Right lower quadrant), guarding (Right lower quadrant to palpation), No rebound Pelvic Exam: not done Rectal Exam: not done Back Exam: normal inspection, normal range of motion, No CVA tenderness, No vertebral tenderness Extremity Exam: normal inspection, normal range of motion, pelvis stable Neurologic Exam: alert, oriented x 3, cooperative, plaster form maker II-XII nml as tested, normal mood/affect, nml cerebellar function, nml station & gait, sensation nml Skin Exam: normal color, warm, dry Lymphatic Exam: No adenopathy SpO2 Interpretation: normal O2 Delivery: Room Air - Course Nursing assessment & vital signs reviewed: Yes Ordered Tests: Active Orders 24 hr Category Date Time Status IV Insertion STAT Care 12/01/22 09:46 Active ABDOMEN AND PELVIS W/0 CONTRAS [CT] Stat Exams 12/01/22 09:46 Completed AMYLASE Stat Lab 12/01/22 10:00 Completed CBC W DIFF Stat Lab 12/01/22 10:00 Completed CMP Stat Lab 12/01/22 10:00 Completed LIPASE Stat Lab 12/01/22 10:00 Completed UA W/RFX UR CULTURE Stat Lab 12/01/22 09:50 Completed Medication Summary Discontinued Medications Generic Name Dose Route Start Last Admin Trade Name Wesleyq PRN Reason Stop Dose Admin Sodium Chloride 500 mls @ 500 mls/hr 12/01/22 09:47 12/01/22 09:55 Sodium Chloride 0.9% 500 Ml IV 12/01/22 10:46 500 mls/hr .Q1H ONE Administration Sodium Chloride Confirm 12/01/22 09:54 Sodium Chloride 0.9% 500 Ml Administered 12/01/22 09:55 Dose 500 mls @ ud IV .STK-MED ONE Lab/Rad Data: Laboratory Result Diagrams 12/01/22 10:00 12/01/22 10:00 Laboratory Results 12/01/22 12/01/22 12/01/22 Range/Units 10:00 10:00 09:50 WBC 10.1 (4.0-10.5) x10^3/uL RBC 4.34 (4.1-5.4) x10^6/uL Hgb 13.7 (12.0-16.0) g/dL Hct 42.4 (35-47) % MCV 97.7 (78-100) fL MCH 31.6 (26-32) pg MCHC 32.3 (32-36) g/dL RDW 14.4 H (11.5-14.0) % Plt Count 328 (150-450) x10^3/uL MPV 9.0 (7.5-11.0) fL Gran % 69.0 H (36.0-66.0) % Immature Gran % (Auto) 0.6 H (0.00-0.4) % Nucleat RBC Rel Count 0.0 (0.00-0.1) % Eos # (Auto) 0.17 (0-0.5) x10^3/uL Immature Gran # (Auto) 0.06 H (0.00-0.03) x10^3u/L Absolute Lymphs (auto) 2.01 (1.0-4.6) x10^3/uL Absolute Monos (auto) 0.79 (0.0-1.3) x10^3/uL Absolute Nucleated RBC 0.00 (0.00-0.01) x10^3u/L Lymphocytes % 20.0 L (24.0-44.0) % Monocytes % 7.9 (0.0-12.0) % Eosinophils % 1.7 (0.00-5.0) % Basophils % 0.8 (0.0-0.4) % Absolute Granulocytes 6.95 H (1.4-6.9) x10^3/uL Basophils # 0.08 (0-0.4) x10^3/uL Sodium 141 (137-145) mmol/L Potassium 3.5 (3.5-5.1) mmol/L Chloride 108 H (98-107) mmol/L Carbon Dioxide 25 (22-30) mmol/L Anion Gap 10.7 (5-15) MEQ/L BUN 13 (7-17) mg/dL Creatinine 0.64 (0.52-1.04) mg/dL Estimated GFR > 60.0 ML/MIN Glucose 95 (74-106) mg/dL Calcium 8.5 (8.4-10.2) mg/dL Total Bilirubin 0.30 (0.2-1.3) mg/dL AST 23 (14-36) U/L ALT 12 (0-35) U/L Alkaline Phosphatase 86 (38-126) U/L Serum Total Protein 6.7 (6.3-8.2) g/dL Albumin 3.6 (3.5-5.0) g/dL Amylase 48 (30-110) U/L Lipase 64 (23-300) U/L Urine Color Yellow (Yellow) Urine Appearance Clear (Clear) Urine pH 5.5 (4.6-8.0) Ur Specific [place] 1.025 (1.005-1.030) Urine Protein Negative (Negative) Urine Glucose (UA) Negative (Negative) mg/dL Urine Ketones Negative (Negative) Urine Blood Negative (Negative) Urine Nitrite Negative (Negative) Urine Bilirubin Negative (Negative) Urine Urobilinogen 0.2 (0.2) mg/dL Ur Leukocyte Esterase Trace A (Negative) U Hyaline Cast (Auto) NONE SEEN (0-2) /LPF Urine Microscopic RBC 0-2 (0-5) /HPF Urine Microscopic WBC 3-5 (0-5) /HPF Ur Epithelial Cells None Seen (None Seen) /HPF Urine Bacteria None Seen (None Seen) /HPF Urine Culture Reflexed NO (NO) - Progress Progress: improved, pain not gone completely Progress Note: 12/01/22 10:47 This patient's medical issue is 1 of moderate complexity. The level of complexity and the work-up performed is based on review of the patient's past medical history, review of the patient's medication list, review of the patient's drug allergies, history of present illness and physical findings on examination. The work-up performed in this patient is placement of an intravenous line, intravenous solution infusion, infusion of morphine and Zofran intravenously, CBC, CMP, amylase, lipase, urinalysis, CT scan of the abdomen pelvis. The rationale for repeating these labs and the CAT scan is to see if there is worsening findings on CAT scan of the abdomen pelvis and laboratory w ork-up. However, patient's vital signs are stable, clinically, the patient does not appear to be in distress, there is no significant changes on the CAT scan of the abdomen and pelvis results. I reviewed the impression of the repeat CAT scan of the abdomen pelvis which showed mild fecal stasis, continued abnormal circumferential wall thickening at the hepatic flexure of the colon concerning for malignancy. The urinalysis is free of infection. Patient is to follow-up with Dr. Blackmon today by phone to arrange a follow-up appointment and outpatient pain management. Counseled pt/family regarding: lab results, diagnosis, need for follow-up, rad results Medical Desision Making - Diagnostic Testing Diagnostic test were ordered, analyzed, and reviewed by me: Yes Radiological Interpretation: Reviewed by me, Teleradiologist Report - Risk of complications Low Risk: Low risk of morbidity from additional dx testing or treatment - Departure Departure Disposition: Home Clinical Impression: Hepatic flexure mass Condition: Stable Critical Care Time: No Referrals: BELLE BLACKMON, [Primary Care Provider] - Follow up/PCP as directed Additional Instructions: Drink plenty of clear liquids. Avoid opiates if possible. Use MiraLAX for constipation symptoms if there are no contraindications. Follow-up with Dr. Blackmon today by phone to make arranges for follow-up appointment and for outpatient pain control.
[2022-12-01] MEDS ORDERED: Sodium Chloride 0.9% 500 ML 500 ML IV ONE (09:54)
[2022-12-01] MEDS: Sodium Chloride 0.9% 500 ML 500 ML IV ONE (09:55)
[2022-12-01 09:58] LABS: Appearance Clear (Clear); Bacteria None Seen /HPF (None Seen); Bilirubin Negative (Negative); Blood Negative (Negative); Epithelial Cells None Seen /HPF (None Seen); Glucose, Urine Negative (Negative); Hyaline Casts NONE SEEN /LPF (0-2); Ketones Negative (Negative); Leukocyte Esterase Trace (Negative); Nitrite Negative (Negative); Ph 5.5 (4.6-8.0); Protein,Urine Dip Negative (Negative); RBC 0-2 /HPF (0-5); Specific Gravity 1.025 (1.005-1.030); Urobilinogen 0.2 mg/dL (0.2)
[2022-12-01 10:14] LABS: ADD URINE CULTURE? NO (NO)
[2022-12-01 10:14] LABS: Absolute Neutrophil Ct (ANC) 6.95 x10^3/uL (1.4-6.9); BASOPHIL % 0.8 % (0.0-0.4); Basophil (Absolute #) 0.08 x10^3/uL (0-0.4); Eosinophil % 1.7 % (0.00-5.0); Eosinophil (Absolute #) 0.17 x10^3/uL (0-0.5); Hematocrit 42.4 % (35-47); Hemoglobin 13.7 g/dL (12.0-16.0); IMMATURE GRAN # 0.06 x10^3u/L (0.00-0.03); IMMATURE GRAN % 0.6 % (0.00-0.4); Lymphocyte (Absolute #) 2.01 x10^3/uL (1.0-4.6); Mean Cell Volume 97.7 fL (78-100); Mean Corpuscular Hemoglobin 31.6 pg (26-32); Mean Corpuscular Hgb Concent. 32.3 g/dL (32-36); Monocyte (Absolute #) 0.79 x10^3/uL (0.0-1.3); Monocytes % 7.9 % (0.0-12.0); Platelet Count 328 x10^3/uL (150-450); Red Blood Count 4.34 x10^6/uL (4.1-5.4); Red Cell Distribution Width 14.4 % (11.5-14.0); White Blood Count 10.1 x10^3/uL (4.0-10.5)
[2022-12-01 10:26] LABS: ALBUMIN 3.6 g/dL (3.5-5.0); ALKALINE PHOSPHATASE 86 U/L (38-126); AMYLASE 48 U/L (30-110); ANION GAP 10.7 MEQ/L (5-15); BLOOD UREA NITROGEN 13 mg/dL (7-17); CHLORIDE 108 mmol/L (98-107); Calcium 8.5 mg/dL (8.4-10.2); Carbon Dioxide 25 mmol/L (22-30); Creatinine 1 0.64 mg/dL (0.52-1.04); EST GLOMERULAR FILTRATION RATE > 60.0 ML/MIN; Glucose 95 mg/dL (74-106); LIPASE 64 U/L (23-300); Potassium 3.5 mmol/L (3.5-5.1); SGOT/AST 23 U/L (14-36); SGPT/ALT 12 U/L (0-35); SODIUM 141 mmol/L (137-145); Total Protein 6.7 g/dL (6.3-8.2)
[2022-12-01 10:28] VITALS: PULSE 61
--- NOTE | 2022-12-01 10:32 | XRAY ---
Indication: Right lower quadrant pain. Multiple contiguous axial images obtained through the abdomen and pelvis without contrast. Comparison: November 02, 2022 Lung bases again clear with incidental pulmonary emphysema. Heart not enlarged. Noncontrasted stomach and small bowel loops nonobstructed. Again appendectomy reported. Hepatic flexure of the colon again demonstrates short segment of circumferential wall thickening grossly unchanged in appearance. New mild diffuse colonic fecal stasis. Left hemicolon again demonstrates intraluminal radiopacities presumably ingested medication/bismuth or barium. Previous hepatic and renal cysts not well seen on today's noncontrast exam. No free fluid/air. Remaining liver, gallbladder, pancreas, spleen, adrenal glands, kidneys, ureters, bladder, and uterus are unremarkable for noncontrast exam. Stable mild scattered aortoiliac calcifications without AAA. Osseous structures intact. Impression: Continued abnormal circumferential wall thickening hepatic flexure of colon concerning for malignancy. New mild diffuse fecal stasis. Again chronic findings including pulmonary edema and arteriosclerotic disease. No acute findings on this noncontrast exam.
[2022-12-01] MEDS ORDERED: Zofran 4 MG/2 ML VIAL ONE (10:55)
[2022-12-01] MEDS: MORPHINE SULFATE 2 MG INJ IV ONE (10:56)
[2022-12-01] MEDS: Zofran 4 MG/2 ML VIAL IV ONE (10:56)
[2022-12-01] MEDS ORDERED: MORPHINE SULFATE 2 MG INJ ONE (10:56)
[2022-12-01 11:21] VITALS: BP 126/76; O2SAT 96
== END 2022-12-01 11:25 | disposition home or self-care (01) ==
LOC: ED 09:19
DX: K63.89 Other specified diseases of intestine (principal); R10.31 Right lower quadrant pain; I10 Essential (primary) hypertension; Z79.899 Other long term (current) drug therapy; Z28.310 Unvaccinated for COVID-19
CPT/HCPCS: 36000; 36415; 74176; 80053; 81001; 82150; 83690; 85025; 96374; 96375; 99284; J2270; J2405

== ENCOUNTER 2022-12-20 08:50 | Day surgery (SDC) | payer MEDICARE ==
[~2022-12-20 08:50] MED LIST changes: +Ak-Dilate OPHTHALMIC*** 1.065 ML, Cyclogyl 1% OPHTH SOL 1.065 ML, GATIFLOXACIN 0.5% OPH... OP ONE; +BETADINE 5% OPHTHALMIC 30 ML OP ONE; +Lactated Ringers 1,000 ML IV SCH; +NON-FORMULARY ITEM OP ONE; +TETRACAINE 0.5% STERI-UNIT SOL OP ONE; -Visionblue IO ONE; +cefUROXime sodium 0.005 GM in Sodium Chloride Flush 30 ML*** 0.5 ML IJ ONE
[2022-12-20] MEDS ORDERED: Epinephrine Preservative Free 1 MG/ML IJ ONE (08:51)
[2022-12-20] MEDS ORDERED: ACETAZOLAMIDE 250 MG TABLET PO ONE (09:00)
[2022-12-20] MEDS ORDERED: Zofran 4 MG/2 ML VIAL IV PRN (09:00)
[2022-12-20] MEDS ORDERED: DIPRIVAN 200 MG/20 ML IV ONE ×2 (11:16→11:33)
[2022-12-20] MEDS ORDERED: Xylocaine-Mpf 2% 5 Ml Vial ONE (11:33)
[2022-12-20 11:52] VITALS: O2SAT 97
[2022-12-20 12:00] VITALS: BP 122/85; PULSE 77
== END 2022-12-20 12:10 | disposition home or self-care (01) ==
LOC: SDC 08:50
PROVIDERS: ATTEND Ophthalmology
DX: H25.811 Combined forms of age-related cataract, right eye (principal)
CPT/HCPCS: 99100; C1780; J0171; J2704; A9270-GY